=== PATIENT | female | born 1950 | race Caucasian/White ===

== ENCOUNTER 2022-04-20 21:49 | Inpatient (IN) | payer MEDICARE, MEDICAID, SELFPAY ==
[2022-04-20] VITALS (10 sets, daily range): BP systolic 98–102; BP diastolic 60–78; PULSE 86–94; RESP 4–19; TEMP 35.8; O2SAT 88–96
[2022-04-20] MEDS: Norepinephrine in D5W 8 MG/250 ML BAG 7.616 MG IV (23:00)
[2022-04-20] MEDS: Normal Saline 1,000 ML 125 ML IV (23:00)
[2022-04-20] MEDS: Norepinephrine in D5W 8 MG/250 ML BAG IV (23:39)
[2022-04-20] MEDS: LORazepam 2 MG/ML VIAL IVP (23:42)
[2022-04-20] MEDS: Pantoprazole 40 MG VIAL IVP (23:44)
[2022-04-20] MEDS: Albuterol/Ipratropium 3 ML UPD VIAL UPD (23:50)
[2022-04-21] VITALS (128 sets, daily range): BP systolic 85–179; BP diastolic 46–79; PULSE 68–114; RESP 1–35; TEMP 33.8–37.5; O2SAT 81–98
--- NOTE | 2022-04-21 | W.PM.HP.N ---
Date of service: 04/20/22 Time of Service: 23:20 Assessment and Plan Assessment and plan (1) Acute respiratory failure with hypoxia and hypercarbia: Status: Acute Assessment and plan: Acute on chronic respiratory failure with hypercarbia and hypoxemia secondary to COPD exacerbation with symptoms suggestive of acute purulent bronchitis. Continue supportive care with mechanical ventilation, treat bronchospasms with scheduled doses of bronchodilators, IV steroids, IV magnesium and empiric treatment with Levaquin. 10 obtain sputum culture as well as urine for Legionella antigen and strep antigen. Provide GI and DVT prophylaxis. Request pulmonary consultation in the morning. (2) COPD exacerbation: Status: Acute Assessment and plan: As above (3) Acute hypotension: Status: Acute Assessment and plan: Probable hypovolemia from poor oral intake over the last few days exacerbated by vasodilatation from medications given for RSI. Supportive care with norepinephrine. POCUS cardiac exam suggest underfilled RV patient could benefit from volume infusion. will give bolus of LR over next couple hours then re-evaluate her response (4) GERD (gastroesophageal reflux disease): Status: Chronic Assessment and plan: iv protonix (5) DVT prophylaxis: Status: Acute Assessment and plan: lovenox 40 mg sc daily History of Present Illness History of Present Illness Chief Complaint: Dyspnea Narrative: This 71-year-old female with a history of COPD, hypertension, GERD, hiatal hernia, dyslipidemia, former smoker (30+ pack years abstinent x3 years) presented to the emergency department on 04/20/2022 with increased dyspnea and cough and sputum production not associated with a fever or rigors. Patient is not on home oxygen. Patient to become progressively worse over the last few days despite increased use of her bronchodilators. At home she uses Trelegy Ellipta and Ventolin HFA. She was evaluated the emergency department at [facility] and admitted as a COPD exacerbation with hypoxic respiratory failure. Per documentation from [facility] EMS found her to be 78% on room air on their arrival she was given a DuoNeb treatment by EMS and on arrival to [facility] emergency department she was 83% on 15 L nonrebreather mask. However with treatment her SPO2 increased to 93% on 15 L via oxy mask. Work-up in the emergency department clued routine labs showing white count 11,100 hemoglobin 13.7 g. D-dimer 1.08. BUN 11 creatinine 1.0. Influenza RSV and SARS-CoV-2 testing were negative. Chest x-ray showed no acute cardiopulmonary findings except for large hiatal hernia. CT angiogram of the chest revealed a large esophageal hiatal hernia and emphysematous changes but no focal infiltrates. Patient was admitted to the hospital at [facility] but progressively declined with increased tachypnea and tachycardia and hypoxemia requiring intubation and mechanical ventilation. Patient was treated with a dose of Levaquin 750 mg IV given Solu-Medrol 40 mg. I was contacted by the hospitalist and asked to accept the patient in transfer to our intensive care unit. Patient received 70 mg of propofol and 50 mg of fentanyl with intubation procedure which was performed by Dr. Everett. Postprocedure the patient had some hypotension which required fluid boluses and initiation of a norepinephrine drip. Patient was transported to [facility] on a ketamine drip and norepinephrine drip. Review of Systems Unobtainable due to endotracheal tube PFSH All Active Problems (Updated 04/21/22 @ 02:42 by Uche Madera MD) DVT prophylaxis (Acute) Acute hypotension (Acute) Acute respiratory failure with hypoxia and hypercarbia (Acute) Varicose veins of lower extremities with inflammation (Acute) Recurrent major depression (Acute) Psoriasis (Chronic) Obstructive sleep apnea (Chronic) Myoclonus (Acute) Lumbar spondylosis (Acute) Lumbago with sciatica (Acute) Iron deficiency anemia (Acute) Essential hypertension (Acute) Hyperlipidemia (Acute) Hyperglycemia (Acute) GERD (gastroesophageal reflux disease) (Chronic) Eustachian tube disorder (Acute) Dysphagia (Acute) Hiatal hernia (Chronic) Degenerative joint disease involving multiple joints (Acute) Atopic dermatitis (Acute) Arthropathy (Acute) Anemia (Chronic) COPD exacerbation (Acute) Medical History (Updated 04/21/22 @ 02:42 by Uche Madera MD) Benign neoplasm of endocrine gland Cardiac arrhythmia Former tobacco use History of non-ST elevation myocardial infarction (NSTEMI) Inflammatory dermatosis Pleurisy Surgical History (Updated 04/21/22 @ 00:24 by Uche Madera MD) H/O colonoscopy (~12/15/16) H/O hemorrhoidectomy (~01/30/11) H/O nasal septoplasty (~11/28/10) H/O tubal ligation H/O varicose vein ligation History of carpal tunnel release (~04/01/07) History of esophagogastroduodenoscopy (EGD) (~03/24/19) History of repair of rectocele (~03/02/01) S/P tonsillectomy Status post coronary artery stent placement (~03/14/11) Status post open reduction with internal fixation (ORIF) of fracture of ankle Family History (Updated 04/21/22 @ 00:26 by Uche Madera MD) Mother Cancer Uterine cancer Social History (Updated 04/21/22 @ 00:25 by Uche Madera MD) Smoking/Tobacco Use Status: Former Tobacco Use Quit Date: 11/07/18 Pack-years: 30 Tobacco: How many years used: 50 Smoking risk assessment performed?: Yes Alcohol Intake: never Drug use: Never Household members: spouse current occupation: Retired [employer] Allergies and Home Medications Allergies Allergy/AdvReac Type Severity Reaction Status Date / Time Cephalosporins Allergy Intermediate Skin Rash Verified 04/21/22 00:30 erythromycin base Allergy Intermediate Skin Rash Verified 04/21/22 00:30 losartan Allergy Mild Skin Rash Verified 04/21/22 00:30 codeine AdvReac Intermediate Dizziness/L Verified 04/21/22 00:30 ighthead doxepin AdvReac Intermediate Dizziness/L Verified 04/21/22 00:30 ighthead celecoxib AdvReac Mild Nausea Verified 04/21/22 00:30 prednisone AdvReac Mild Dizziness/L Verified 04/21/22 00:30 ighthead Home Medications Medication Instructions Recorded Confirmed Type albuterol sulfate 90 mcg/actuation 2 inh inhalation Q4H PRN PRN 04/21/22 04/21/22 History aerosol inhaler (Ventolin HFA) amlodipine 10 mg tablet 10 mg PO DAILY 04/21/22 04/21/22 History fluticasone fur. 100 mcg-umeclid 1 inh inhalation DAILY 04/21/22 04/21/22 History 62.5 mcg-vilant 25 mcg inhalat.powder (Trelegy Ellipta) omeprazole 40 mg capsule,delayed 40 mg PO DAILY 04/21/22 04/21/22 History release rosuvastatin 20 mg tablet 20 mg PO DAILY 04/21/22 04/21/22 History tiotropium bromide 1.25 2 puff inhalation DAILY 04/21/22 04/21/22 History mcg/actuation mist for inhalation (Spiriva Respimat) Exam Narrative Exam Narrative: Moderate build elderly female who is sedated and intubated with endotracheal tube 7.5, pupils pinpoint but reactive to direct and consensual light no scleral icterus Oropharynx no exudate moist mucous membranes edentulous Neck supple no rigidity no overt JVD normal carotid pulses Lungs diffuse scattered expiratory wheezes Heart is regular but slightly tachycardic no appreciable murmur rub or gallop Abdomen protuberant but soft nondistended no palpable masses no bruits Extremities without peripheral cyanosis or edema Neuro exam patient is sedated not responsive to tactile stimulation there is no decerebrate or decorticate posturing. Muscle tone intact no facial asymmetry Results Labs 04/21/22 05:35 04/21/22 05:35 Last Vital Signs Pulse 92 H 04/20/22 23:50 Resp 18 04/20/22 23:50 Pulse Ox 90 L 04/20/22 23:50 Time Spent Time spent with Patient: 55-74 minutes Time was spent: preparing to see the patient(eg.review tests), obtaining and/or reviewing separately otained hiistory, ordering medications,tests, procedures, referring, communicating with other health resident care assistant (discussion w/ Dr. Everett, hospitalist [facility] indepentently interpreting results, counseling the patient (counseling family (, sons)) and care coordination
--- NOTE | 2022-04-21 00:01 | DI.RAD_ITS ---
Exam(s) XR PORTABLE CHEST AP EXAM: XR PORTABLE CHEST AP CLINICAL HISTORY: hypoxic respiratory failure TECHNIQUE: 2D digital imaging was performed. COMPARISON: No exams were available for comparison FINDINGS: Endotracheal tube with tip at the level of the aortic arch. Nasogastric tube projects in the stomach . Multiple leads overlie the chest. LUNGS: Emphysematous and mild fibrotic changes. No focal area of consolidation. No pleural abnormal ity seen. HEART: Normal size. AORTA: Normal diameter. BONES: Unremarkable for age. Soft tissues: Unremarkable. IMPRESSION: No acute findings. Satisfactory port placement of endotracheal and nasogastric tubes. DATA REPOSITORY: RADIATION DOSE DELIVERED:
[2022-04-21] MEDS: dexmedeTOMidine IN 0.9 % NACL 400 MCG/100 ML BTL IV ×2 (00:22→12:24)
[2022-04-21 00:38] LABS: BE (Venous) -11 mmol/L (-2-3); HCO3 (Venous) 19 mmol/L (23-28); O2 Sat (Venous) 89 %; TCO2 (Venous) 18 mmol/L (24-29); pCO2 (Venous) 59 mmHg (41-51); pO2 (Venous) 71 mmHg
[2022-04-21 00:39] LABS: pH (Venous) 7.11 (7.31-7.41)
--- NOTE | 2022-04-21 01:00 | RT.EKG_ITS ---
APPROVED REPORT Exam: Resting ECG Reason for Exam: acute respiratory failure, hypotension Patient Location: I HR:74 bpm ECG Measurements Heart Rate 74 AXIS TN 123 P 66 QRSd 99 QRS 71 QT 477 T 29 QTc 530 Conclusion Sinus rhythm...normal P axis, V-rate 50- 99 Low voltage with right axis deviation...low voltage, RAD Prolonged QT interval...QTc >500mS
[2022-04-21] MEDS: methylPREDNISolone SUCC 40 MG VIAL IV ×3 (01:02→08:56)
[2022-04-21 01:19] LABS: Lab Add On Test CBN
[2022-04-21 01:26] LABS: Magnesium 2.1 mg/dL (1.8-2.4)
--- NOTE | 2022-04-21 01:30 | DI.VRAD_ITS ---
PROCEDURE INFORMATION: Exam: XR Chest Exam date and time: 04/21/2022 12:29 AM Age: 71 years old Clinical indication: Condition or disease; Other: Hypoxic respiratory failure TECHNIQUE: Imaging protocol: Radiologic exam of the chest. Views: 1 view. COMPARISON: No relevant prior studies available. FINDINGS: Tubes, catheters and devices: Tip of ET tube overlies trachea, approximately 3.5 cm above tania. Enteric tube followed to left upper quadrant. Lungs: Hyperinflation. No consolidation. Pleural spaces: Unremarkable. No pleural effusion. No pneumothorax. Heart/Mediastinum: Unremarkable. No cardiomegaly. Bones/joints: Degenerative changes. IMPRESSION: 1. ET tube appears satisfactorily positioned. 2. Hyperinflation of the lungs. Dictated and Authenticated by: Avery Gomez MD. Ordering:[facility] Santy Ivey MD
[2022-04-21] MEDS: Albuterol 2.5 MG/3 ML INH SOLN VIAL (01:37)
[2022-04-21] MEDS: MAGNESIUM SULFATE 2 GM/50 ML BAG IVPB (01:38)
[2022-04-21] MEDS: Lactated Ringers 1,000 ML 250 ML IV (02:00)
--- NOTE | 2022-04-21 02:24 | W.POCUS ---
Pocus Exam Limited Cardiac Exam DATE OF EXAM: 04/21/22 TIME OF EXAM: 01:25 PROVIDER THAT PERFORMED THE STUDY: Uche Madera IS THIS A REPEAT EXAM DURING THIS ENCOUNTER: no REASON FOR EXAM: Hypotension VISUALIZED STRUCTURES: four chambers, LVOT, aortic valve, mitral valve, Interventricular septum and IVC VIEW OBTAINED: Apical 4-Chamber, Parasternal long-axis, Parasternal short-axis and Subxiphoid PERTINENT FINDINGS/IMPRESSION: No LV dysfunction, No pericardial effusion and No RV dysfunction INCIDENTAL FINDINGS: underfilled RV w/ normal RV systolic function Exam complete
[2022-04-21] MEDS: fentaNYL 100 MCG/2 ML VIAL 50 MCG IVP ×4 (02:36→11:24)
[2022-04-21] MEDS: Lactated Ringers 1,000 ML 999 ML IV (03:33)
[2022-04-21] MEDS: Albuterol/Ipratropium 3 ML UPD VIAL UPD ×5 (03:39→19:58)
[2022-04-21] MEDS: Lactated Ringers 1,000 ML 150 ML IV (04:41)
[2022-04-21] MEDS: Normal Saline Flush 10 ML SYR IVP ×5 (05:27→21:56)
[2022-04-21 06:40] LABS: BE (Venous) -7 mmol/L (-2-3); HCO3 (Venous) 20 mmol/L (23-28); O2 Sat (Venous) 98 %; TCO2 (Venous) 19 mmol/L (24-29); pCO2 (Venous) 45 mmHg (41-51); pH (Venous) 7.26 (7.31-7.41); pO2 (Venous) 105 mmHg
[2022-04-21 06:49] LABS: Abs Immature Grans 0.04 10^3/uL (0.0-0.06); Absolute Lymphocyte Count 0.27 10^3/uL (1.2-3.4); Absolute Monocyte Count 0.33 10^3/uL (0.1-0.8); Basophils % 0.1; HCT 35.1 % (36.0-46.0); HGB 10.9 g/dL (11.2-15.7); Immature Grans % 0.3; Lactate 3.1 mmol/L (0.6-1.4); Lymphocytes % 1.9; MCH 26.7 pg (27.0-33.0); MCHC 31.1 % (32.0-36.0); MCV 86 fL (80-95); MPV 9.4 fL (8.0-11.0); Monocytes % 2.3; Neutrophils % 95.4; Platelet Count 250 10^3/uL (130-400); RBC 4.09 10^6/uL (3.93-5.22); RDW 16.4 % (11.7-14.6); RDW-SD 50.9 fL; WBC 14.21 10^3/uL (4.4-10.8)
[2022-04-21 06:59] LABS: Prothrombin Time 10.2 sec (9.3-11.0)
[2022-04-21 07:05] LABS: Absolute Basophil Count 0.01 10^3/uL (0.0-0.2); Absolute Neutrophil Count 13.56 10^3/uL (1.2-6.7)
--- NOTE | 2022-04-21 07:15 | PUCC_ITS ---
General Date of Service Date of service: 04/21/22 Time of Service: 07:15 Reason for Admission to ICU: Acute hypoxic and hypercapnic respiratory failure Assessment and Plan Assessment and plan (1) Acute hypotension: Status: Acute (2) Acute respiratory failure with hypoxia and hypercarbia: Status: Acute (3) GERD (gastroesophageal reflux disease): Status: Chronic (4) COPD exacerbation: Status: Acute (5) Hypokalemia: Status: Acute (6) Sacral decubitus ulcer: Status: Acute (7) ARMIN (acute kidney injury): Status: Acute (8) Leukocytosis: Status: Acute Assessment and plan: This is a 71 yo admitted to the ICU after being intubated at OSH for acute hypoxic and hypercapnic respiratory failure. SBT this morning was failed after approximately 1 hour due to increased respiratory rate, hypoxia and tachycardia. She is getting Duonebs and maintenance inhalers. She was started on Levaquin, however in the absence of a pneumonia on imaging, doxycycline should be sufficient. I will add a repeat lactate, VBG and add a procalcitonin to be completed today. I do not think she needs further IVF resuscitation. She was requiring vasopressors, likely due to sedation, and was able to liberate her from these this morning as well. They may be needed prn since she will be resedated as she is not ready for extubation today. There is no utility is giving very large doses of methylprednisilone in pure COPD, so I have changed this to 40mg daily as opposed to q8h. Since she is remaining intubated, I will start her on tube feeds today. Recommendations Pulmonary: Acute hypoxic and hypercapnic respiratory failure - continue Symbicort 80 and Spiriva (patient on Trelegy as an outpatient) - Duonebs q4h while intubated - continue mechanical ventilation - PEEP 5, TV 6-8cc/kg, RR 14 - recommend another SBT this afternoon, however will not extubate at this time - will re-evaluate tomorrow morning - repeat VBG and lactate - recommend extubating to HFNC once patient is ready COPD Exacerbation - continue inhaler and nebs as above - change IV methylpred from 40mg q8h to 40mg daily - change Levaquin to doxycycline - I will see patient as an outpatient after discharge Cardiac: Hypotension - likely due to sedation - Levophed prn while on sedation - no further IVF's needed Renal: ARMIN - continue to monitor - strict I/O's I&O: Intake & Output 04/18/22 04/19/22 04/20/22 04/21/22 23:59 23:59 23:59 23:59 Intake Total 2327.534 / 2327.534 Output Total 150 / 150 435 / 435 Balance -150 / -150 1892.534 / 1892.534 Weight 66.7 kg 66 kg Daily Fluid Goal:: even GI Nutrition: Nutrition - start tube feeds at 5cc/hr with gradual increses to goal of 45cc/hr to start - nutrition consult Date of Last Bowel Movement: 04/20/22 Infectious Disease: Concern for pulmonary infection - procalcitonin - Levaquin changed to doxycycline (no pneumonia seen on imaging) - urine antigens for strep and legionella pending - sputum culture ordered Sacral wound, present on admission - Mepelex, consider wound consult Hematologic: Leukocytosis - likely reactive Neurologic: No acute concerns Endocrine: Hyperglycemia - low SSI added with q6h fingersticks Lines: PIV Cohen Prophylaxis: Lovenox Protonix Code Status: Resuscitation Status DNR Subjective Critical and life-threatening events over the past 24 hours: This is a 71 yo with COPD, HTN, GERD who presented to [facility] with increased dyspnea, cough and sputum. She became progressively worse over the preceding days despite use of her bronchodilators. When she presented to [facility] Ed her O2 was 78% and she was in respiratory distress. She had supplemental O2 administered, but despite a NRB at 15L she was still hypoxic and labored. She was placed on high flow oxygen and [facility] hospitalist was called for admission. Her flu, RSV and COVID were all negative. She had a CXR and an CTA. The CTA shows no consolidation, no PE and only with a large hiatal hernia and mild emphysema (I do not have access to view this CTA myself). Her ABG last night: . She was admitted to [facility] but decompensated to the point where she was intubated (I cannot see that any BiPAP or other NIV was attempted with her). She was requiring low dose vasopressor support, likely due to sedation and was placed on antibiotic therapy with Levaquin (cephalosporin allergy). She remains intubated this morning. I turned off her sedation, IVF's and Levophed and placed her on a spontaneous breathing trial. She did well for approximately 1 hour, but then began to have respiratory distress and was working much more to breath. I had her placed back onto volume control. Exam Narrative Exam Narrative: POCUS 04/21/21: Good views at all cardiac POCUS sites. Good LV and RV function. Septum does seem to be enlarged, although no clear JOSH, if she were underfilled this could be possible. IVC is plump(2.42cm) with no collapse (patient is mechanically ventilated). Gen: intubated and sedated HENT: pupils minimally reactive Chest: No respiratory distress, normal appearance of chest, clear to auscultation bilaterally, no crackles or wheezes, normal inspiratory effort Heart: regular rate and rhythym, no murmurs, rubs or gallops Abdomen: Non-distended, soft, non tender Extremities: No clubbing, edema, cyanosis, rashes Neuro: off sedation patient follows commands appropriately Psych: cooperative Most Recent VS/Results Last Vital Signs Temp 33.8 C L 04/21/22 04:00 Pulse 71 04/21/22 06:01 Resp 15 04/21/22 06:01 BP 98/53 L 04/21/22 06:01 Pulse Ox 92 04/21/22 06:01 Laboratory Results - last 24 hr 04/21/22 04/21/22 04/21/22 00:31 00:31 01:18 WBC RBC Hgb Hct MCV MCH MCHC RDW Plt Count MPV Immature Gran % Neutrophils % Lymphocytes % Monocytes % Eosinophils % Basophils % Nucleated RBC % Absolute Neutrophils Absolute Lymphocytes Absolute Monocytes Absolute Eosinophils Absolute Basophils VBG pH 7.11 L* VBG pCO2 59 H VBG pO2 71 VBG HCO3 19 L VBG Total CO2 18 L VBG O2 Saturation 89 VBG Base Excess -11 L VBG Lactate Magnesium 2.1 Add-On Test Request CBN 04/21/22 04/21/22 04/21/22 06:32 06:32 06:32 WBC 14.21 H RBC 4.09 Hgb 10.9 L Hct 35.1 L MCV 86 MCH 26.7 L MCHC 31.1 L RDW 16.4 H Plt Count 250 MPV 9.4 Immature Gran % 0.3 Neutrophils % 95.4 Lymphocytes % 1.9 Monocytes % 2.3 Eosinophils % 0.0 Basophils % 0.1 Nucleated RBC % 0.0 Absolute Neutrophils 13.56 H Absolute Lymphocytes 0.27 L Absolute Monocytes 0.33 Absolute Eosinophils 0.00 Absolute Basophils 0.01 VBG pH 7.26 L VBG pCO2 45 VBG pO2 105 VBG HCO3 20 L VBG Total CO2 19 L VBG O2 Saturation 98 VBG Base Excess -7 L VBG Lactate 3.1 H* Magnesium Add-On Test Request Review of Systems Unobtainable due to endotracheal tube Time spent with patient Time spent in Critical Care: 60 Time spent in Critical care included: Coordination of care, Chart review, Documenting critically ill care, Time at immediate bedside and Discussing critically ill care with other medical staff Multi-Disciplinary Checklist Lines/Tubes CENTRAL LINE: no ARTERIAL LINE: no COHEN: yes, Cohen Day#: 1 ENDOTRACHEAL TUBE: yes, Endotracheal Tube Day#: 1 Sedation: yes, Sedation Vacation: yes Head of Bed@30 degrees: yes Spontaneous Breathing Trial: yes ICU Maintenance GLUCOSE 140-180mg/dL: no, Reason/Intervention: added SSI PRESSURE ULCER: yes, Lumbar/Sacral RESTRAINTS: yes, Reviewed Necessity: Yes ANTIBIOTICS(if yes, consider Stewardship): Yes Social Issues FAMILY UPDATED: no, Reason/Intervention: defer to hospitalist team PT/OT: no, Reason/Intervention: not appropriate at this time GOALS/DISPOSITION/SUPERVISOR SPECIAL EFFECTS: yes CODE STATUS: DNR,Intubation OK Prophylaxis DVT PROPHYLAXIS: yes GI PROPHYLAXIS: yes, Indication: Mechanical ventilation
[2022-04-21 07:35] LABS: ALT 20 U/L (14-59); AST 24 U/L (15-37); Albumin 3.1 g/dL (3.4-5.0); Alkaline Phosphatase 69 U/L (46-116); BUN 19 mg/dL (7-18); Bilirubin, Total 0.6 mg/dL (0.2-1.0); CREATININE 1.3 mg/dL (0.55-1.02); Calcium 8.7 mg/dL (8.5-10.1); Chloride 106 mmol/L (98-107); Estimated GFR 43.96 (mL/min/1.73m2); Glucose 228 mg/dL (74-106); Potassium 3.1 mmol/L (3.5-5.1); Sodium 140 mmol/L (136-145); TSH 1.21 uIU/mL (0.36-3.74); Total Protein 6.1 g/dL (6.4-8.2)
[2022-04-21] MEDS: Budesonide/Formoterol 80/4.5 6.9 GM 60 PUFF INH IH ×2 (08:22→20:41)
--- NOTE | 2022-04-21 08:33 | PDOC.CMIN ---
- If Service Date Differs Date of service: 04/21/22 Time of Service: 08:33 Care Management Initial Assess REASON FOR HOSPITALIZATION:: Acute hypoxemic respiratory failure PAST MEDICAL HISTORY/PAST SURGICAL HISTORY:: Medical History (Updated 04/21/22 @ 02:42 by Uche Madera MD). Benign neoplasm of endocrine gland. Cardiac arrhythmia. Former tobacco use. History of non-ST elevation myocardial infarction (NSTEMI). Inflammatory dermatosis. Pleurisy. Surgical History (Updated 04/21/22 @ 00:24 by Uche Madera MD). H/O colonoscopy (~12/15/16). H/O hemorrhoidectomy (~01/30/11). H/O nasal septoplasty (~11/28/10). H/O tubal ligation. H/O varicose vein ligation. History of carpal tunnel release (~04/01/07). History of esophagogastroduodenoscopy (EGD) (~03/24/19). History of repair of rectocele (~03/02/01). S/P tonsillectomy. Status post coronary artery stent placement (~03/14/11). Status post open reduction with internal fixation (ORIF) of fracture of ankle PREVIOUS FUNCTIONAL STATUS/SOCIAL/FAMILY SUPPORTS:: Fifi resides in [place] with her , Davis. Sons Juan Manuel MONDRAGON, and Alysia have been present consistently since admission. CURRENT FUNCTIONAL STATUS:: Attempt to extubate this morning was unsuccessful. Family present and supportive. Has patient been provided with info about the portal/API?: No Did the patient sign up for the portal?: No CODE STATUS:: DNR INSURANCE COVERAGE / FINANCIAL ISSUES:: Medicare. Medicaid POTENTIAL DISCHARGE NEEDS:: Evaluations for further needs. PATIENT/FAMILY EDUCATION NEEDS:: Review discharge instructions, discuss Ask Me Three. ANTICIPATED BARRIERS TO DISCHARGE:: bronchodilators, at home she uses Trelegy Ellipta and Ventolin HFA TRANSPORTATION:: Via private vehicle with family. PLAN:: Fifi continues to be closely monitored, she will be evaluated for further needs prior to discharge. Per Hospitalist, [facility] has agreed to accept patient back when medically stable and out of ICU status. continues to follow.
[2022-04-21] MEDS: Enoxaparin 40 MG/0.4 ML SYR SC (08:58)
[2022-04-21 10:21] LABS: BE (Venous) -5 mmol/L (-2-3); HCO3 (Venous) 23 mmol/L (23-28); O2 Sat (Venous) 89 %; TCO2 (Venous) 22 mmol/L (24-29); pCO2 (Venous) 53 mmHg (41-51); pH (Venous) 7.24 (7.31-7.41); pO2 (Venous) 59 mmHg
[2022-04-21 10:48] LABS: Lactate 1.4 mmol/L (0.6-1.4)
[2022-04-21] MEDS: DOXYCYCLINE 100 MG in Normal Saline 100 ML IVPB ×2 (10:59→21:55)
--- NOTE | 2022-04-21 11:42 | W.NUTCONSULT ---
Date of service: 04/21/22 Time of Service: 11:42 Nutritional Consult ASSESSMENT: Fifi was intubated secondary to respiratory failure with sacral pressure wound (awaiting stage/size) hx of COPD, HTN. No height in chart- appears well nourished, about 5 ft. BMI in overweight catagory. Spoke to daughter in law, reports no recent weight loss or change in eating habits. Estimated Needs: 1690 kcal, 65-90 g protein (1.4 g/kg), 1950 ml fluid INTERVENTION: Recommend Jevity 1.5: 45 cc/hour providing a total of 1620 kcal, 67.5 g protein, 810 ml fluid. Flush free water 300 ml q 6 hours 2 ounces Liquid Protein via feeding tube- providing additional 120 kcal, 30 g protein MONITORING AND EVALUATION: residuals, labs, weight Time Spent in Nutritional Counseling and Treatment: 10
[2022-04-21 11:45] LABS: Procalcitonin 0.4 ng/mL
--- NOTE | 2022-04-21 15:00 | PHA.REVIEW2 ---
Pharmacy Admission Review - Admission Clinical Review (Last Updated 04/21/22 @ 00:20 by Uche Madera MD) Sacral decubitus ulcer (Acute) Leukocytosis (Acute) ARMIN (acute kidney injury) (Acute) Hypokalemia (Acute) DVT prophylaxis (Acute) Acute hypotension (Acute) Acute respiratory failure with hypoxia and hypercarbia (Acute) COPD exacerbation (Acute) Cephalosporins Allergy (Intermediate, Verified 04/21/22 00:30) Skin Rash erythromycin base Allergy (Intermediate, Verified 04/21/22 00:30) Skin Rash losartan Allergy (Mild, Verified 04/21/22 00:30) Skin Rash codeine Adverse Reaction (Intermediate, Verified 04/21/22 00:30) Dizziness/Lighthead doxepin Adverse Reaction (Intermediate, Verified 04/21/22 00:30) Dizziness/Lighthead celecoxib Adverse Reaction (Mild, Verified 04/21/22 00:30) Nausea prednisone Adverse Reaction (Mild, Verified 04/21/22 00:30) Dizziness/Lighthead Resuscitation Status DNR Height 4 ft 11 in Weight 66 kg - Renal Dosing Renal Dosing: BUN 19 mg/dL (7-18) H 04/21/22 06:32 Creatinine 1.3 mg/dL (0.55-1.02) H 04/21/22 06:32 Medications needing adjustments: Reviewed (Crcl ~40.8 mL/min current meds okay) - Anticoagulation Anticoagulation: Hgb 10.9 g/dL (11.2-15.7) L 04/21/22 06:32 Hct 35.1 % (36.0-46.0) L 04/21/22 06:32 Plt Count 250 10^3/uL (130-400) 04/21/22 06:32 INR 1.0 (0.9-1.1) 04/21/22 06:32 Creatinine 1.3 mg/dL (0.55-1.02) H 04/21/22 06:32 DVT Prophylaxis: Reviewed Medications: Enoxaparin Therapeutic Anticoagulation: N/A - Opiate Usage Evaluate Pain Scale/Pains Meds: Reviewed Scheduled Bowel Reg ordered if on Opiates?: No (pt is NPO) - Relevant Labs Sodium 140 mmol/L (136-145) 04/21/22 06:32 Potassium 3.1 mmol/L (3.5-5.1) L 04/21/22 06:32 Chloride 106 mmol/L (98-107) 04/21/22 06:32 Magnesium 2.1 mg/dL (1.8-2.4) 04/21/22 00:31 Electrolytes, C-Reactive P, ESR: Intervened (K+ low, made sure provider was aware as no replacement had been ordered) - DM Control DM Control: Glucose 228 mg/dL (74-106) H 04/21/22 06:32 Finger Stick Blood Glucose 130 Finger Stick Blood Glucose 130 Finger Stick Blood Glucose 130 DM Control: Intervened Insulin Dosing, Diabetic Medication: sliding scale aspart ordered - Cardiac Review BP, HR, EF%: Reviewed (BP has been up and down some, but on the lower side most of admission) - Qtc Review QTc: Reviewed (QTc 530 on EKG done this morning, current meds okay) - IV to PO Switch IV Medications: Reviewed (pt is vented and NPO/getting tube feeds) - Home Meds Home Med List reviewed: Reviewed (therapeutic duplicate (inhaled anticholinergics)-has both trelegy ellipta (contains umeclidinium) and spiriva (tiotropium) on her home med list) Relevent Home Meds Not ordered & why?: amlodipine (NPO, hypotension), trelegy ellipta (has symbicort and spiriva subbed for this), omeprazole (NPO, has pantoprazole ordered), rosuvastatin (NPO) - Current meds Current Medication Order Review: Intervened (Talked to provider about duplicates (scheduled duonebs and combivent; trelegy ellipta and symbicort/spiriva), combivent and trelegy discontinued.) - Comments Comments/Follow Ups: Watch BP, SCr, K+, labs and for med changes (possible renal dose adjustments, IV to PO, possible BM meds) Antibiotic Review - Pharmacy Antibiotic Review Pharmacy Antibiotic Activity: Abx regimen adjustment (levofloxacin was cancelled and doxycyline was ordered) Relevant Labs: Relevant Labs 04/21/22 10:15 Procalcitonin 0.4
[2022-04-21] MEDS: POTASSIUM CHLORIDE 20 MEQ/100 ML BAG 50 MEQ IVPB ×2 (15:37→17:28)
[2022-04-21] MEDS: Furosemide 40 MG/4 ML VIAL IVP (15:37)
[2022-04-21 17:07] LABS: BE (Venous) -2 mmol/L (-2-3); HCO3 (Venous) 24 mmol/L (23-28); O2 Sat (Venous) 98 %; TCO2 (Venous) 22 mmol/L (24-29); pCO2 (Venous) 40 mmHg (41-51); pH (Venous) 7.38 (7.31-7.41); pO2 (Venous) 97 mmHg
[2022-04-21] MEDS: PROPOFOL 500 MG/50 ML BTL IV (17:57)
[2022-04-21 18:11] LABS: Legionella Ag Detection Urine Negative (Negative)
[2022-04-21] MEDS: dexmedeTOMidine IN 0.9 % NACL 400 MCG/100 ML BTL 11.7 MCG IV (19:30)
[2022-04-21] MEDS: Pantoprazole 40 MG VIAL IVP (21:45)
[2022-04-21] MEDS: Normal Saline 500 ML 30 ML IV (21:56)
[2022-04-21] MEDS: PROPOFOL 1,000 MG/100 ML BTL 12.1 MG IV (23:27)
[2022-04-22] VITALS (115 sets, daily range): BP systolic 104–176; BP diastolic 53–94; PULSE 84–132; RESP 4–29; TEMP 36–37.2; O2SAT 87–98
[2022-04-22] MEDS: Albuterol/Ipratropium 3 ML UPD VIAL UPD ×4 (00:54→11:52)
[2022-04-22] MEDS: dexmedeTOMidine IN 0.9 % NACL 400 MCG/100 ML BTL 11.7 MCG IV (03:16)
[2022-04-22 06:08] LABS: Abs Immature Grans 0.12 10^3/uL (0.0-0.06); Absolute Basophil Count 0.02 10^3/uL (0.0-0.2); Absolute Lymphocyte Count 0.47 10^3/uL (1.2-3.4); Absolute Monocyte Count 1.59 10^3/uL (0.1-0.8); Absolute Neutrophil Count 18.39 10^3/uL (1.2-6.7); Basophils % 0.1; HCT 34.2 % (36.0-46.0); HGB 10.8 g/dL (11.2-15.7); Immature Grans % 0.6; Lymphocytes % 2.3; MCH 26.9 pg (27.0-33.0); MCHC 31.6 % (32.0-36.0); MCV 85 fL (80-95); MPV 9.9 fL (8.0-11.0); Monocytes % 7.7; Neutrophils % 89.3; Platelet Count 254 10^3/uL (130-400); RBC 4.02 10^6/uL (3.93-5.22); RDW 16.5 % (11.7-14.6); RDW-SD 51.6 fL; WBC 20.59 10^3/uL (4.4-10.8)
[2022-04-22 06:24] LABS: ALT 26 U/L (14-59); AST 33 U/L (15-37); Albumin 3.1 g/dL (3.4-5.0); Alkaline Phosphatase 68 U/L (46-116); Anion Gap 8.5 mmol/L (3-11); BUN 28 mg/dL (7-18); Bilirubin, Total 0.4 mg/dL (0.2-1.0); CO2 24.5 mmol/L (21.0-32.0); CREATININE 1.3 mg/dL (0.55-1.02); Calcium 9.1 mg/dL (8.5-10.1); Chloride 107 mmol/L (98-107); Estimated GFR 43.96 (mL/min/1.73m2); Glucose 125 mg/dL (74-106); Potassium 4.2 mmol/L (3.5-5.1); Sodium 140 mmol/L (136-145); Total Protein 6.4 g/dL (6.4-8.2)
[2022-04-22 06:35] LABS: Diff Comment Agrees w/ Instrument; RBC Morphology Normal
--- NOTE | 2022-04-22 06:48 | PUCC_ITS ---
General Date of Service Date of service: 04/22/22 Time of Service: 06:48 Reason for Admission to ICU: Acute hypoxic and hypercapnic respiratory failure Assessment and Plan Assessment and plan (1) Acute hypotension: Status: Acute (2) Acute respiratory failure with hypoxia and hypercarbia: Status: Acute (3) GERD (gastroesophageal reflux disease): Status: Chronic (4) COPD exacerbation: Status: Acute (5) Hypokalemia: Status: Acute (6) Sacral decubitus ulcer: Status: Acute (7) ARMIN (acute kidney injury): Status: Acute (8) Leukocytosis: Status: Acute Assessment and plan: This is a 71 yo admitted to the ICU after being intubated at OSH for acute hypoxic and hypercapnic respiratory failure due to a COPD exacerbation. She is currently doing well on SBT. We will continue her on this and if she is still doing well at 9:15 we will plan to extubate her to BiPAP 10/5. She is on some Precedex for anxiety and she can be extubated while on the Precedex. He had a dip in UOP yesterday that was rectified with Lasix. Recommendations Pulmonary: Acute hypoxic and hypercapnic respiratory failure - continue Symbicort 80 and Spiriva (patient on Trelegy as an outpatient) - Duonebs q4h while intubated - continue mechanical ventilation - PEEP 5, TV 6-8cc/kg, RR 14 - if passes SBT around 9:15 can be extubated to BiPAP 10/5 COPD Exacerbation - continue inhaler and nebs as above - change IV methylpred 40mg daily - doxycycline - I will see patient as an outpatient after discharge Cardiac: Hypotension, resolved - likely due to sedation - Levophed prn while on sedation - no further IVF's needed Renal: ARMIN - continue to monitor - strict I/O's I&O: Intake & Output 04/19/22 04/20/22 04/21/22 04/22/22 23:59 23:59 23:59 23:59 Intake Total 4492.291 / 4492.291 300.028 / 300.028 Output Total 150 / 150 1660 / 1660 Balance -150 / -150 2832.291 / 2832.291 300.028 / 300.028 Weight 66.7 kg 66 kg 68.3 kg Daily Fluid Goal:: even GI Nutrition: Nutrition - tube feeds while intubated - nutrition consult Date of Last Bowel Movement: 04/19/22 Infectious Disease: Concern for pulmonary infection - procalcitonin negative - Levaquin changed to doxycycline (no pneumonia seen on imaging) - urine antigens for strep and legionella pending - sputum culture ordered Sacral wound, present on admission - Mepelex, consider wound consult Hematologic: Leukocytosis - likely reactive Neurologic: No acute concerns Endocrine: Hyperglycemia - low SSI added with q6h fingersticks Lines: PIV Cohen Prophylaxis: Lovenox Protonix Code Status: Resuscitation Status DNR Subjective Critical and life-threatening events over the past 24 hours: She did require propofol to be started yesterday due to agitation. She did well overnight. No further vasopressor requirements. She is able to follow commands and wants the tube out. Exam Narrative Exam Narrative: POCUS 04/21/21: Good views at all cardiac POCUS sites. Good LV and RV function. Septum does seem to be enlarged, although no clear JOSH, if she were underfilled this could be possible. IVC is plump(2.42cm) with no collapse (patient is mechanically ventilated). Gen: intubated and sedated HENT: pupils minimally reactive Chest: No respiratory distress, normal appearance of chest, clear to auscultation bilaterally, bilateral expiratory wheezes Heart: regular rate and rhythym, no murmurs, rubs or gallops Abdomen: Non-distended, soft, non tender Extremities: No clubbing, edema, cyanosis, rashes Neuro: off sedation patient follows commands appropriately Psych: cooperative Most Recent VS/Results Last Vital Signs Temp 36.0 C L 04/22/22 05:41 Pulse 101 H 04/22/22 05:41 Resp 16 04/22/22 05:58 BP 104/53 L 04/22/22 05:41 Pulse Ox 92 04/22/22 05:58 Laboratory Results - last 24 hr 04/21/22 04/21/22 04/21/22 06:32 06:32 06:32 WBC 14.21 H RBC 4.09 Hgb 10.9 L Hct 35.1 L MCV 86 MCH 26.7 L MCHC 31.1 L RDW 16.4 H Plt Count 250 MPV 9.4 Immature Gran % 0.3 Neutrophils % 95.4 Lymphocytes % 1.9 Monocytes % 2.3 Eosinophils % 0.0 Basophils % 0.1 Nucleated RBC % 0.0 Absolute Neutrophils 13.56 H Absolute Lymphocytes 0.27 L Absolute Monocytes 0.33 Absolute Eosinophils 0.00 Absolute Basophils 0.01 RBC Morphology PT 10.2 INR 1.0 VBG pH VBG pCO2 VBG pO2 VBG HCO3 VBG Total CO2 VBG O2 Saturation VBG Base Excess VBG Lactate Sodium 140 Potassium 3.1 L Chloride 106 Carbon Dioxide 22.0 Anion Gap 12.0 H BUN 19 H Creatinine 1.3 H Est GFR (CKD-EPI 2020) 43.96 Glucose 228 H Calcium 8.7 Total Bilirubin 0.6 AST 24 ALT 20 Alkaline Phosphatase 69 Total Protein 6.1 L Albumin 3.1 L Procalcitonin TSH 1.21 04/21/22 04/21/22 04/21/22 06:32 10:15 10:15 WBC RBC Hgb Hct MCV MCH MCHC RDW Plt Count MPV Immature Gran % Neutrophils % Lymphocytes % Monocytes % Eosinophils % Basophils % Nucleated RBC % Absolute Neutrophils Absolute Lymphocytes Absolute Monocytes Absolute Eosinophils Absolute Basophils RBC Morphology PT INR VBG pH 7.24 L VBG pCO2 53 H VBG pO2 59 VBG HCO3 23 VBG Total CO2 22 L VBG O2 Saturation 89 VBG Base Excess -5 L VBG Lactate 3.1 H* 1.4 Sodium Potassium Chloride Carbon Dioxide Anion Gap BUN Creatinine Est GFR (CKD-EPI 2020) Glucose Calcium Total Bilirubin AST ALT Alkaline Phosphatase Total Protein Albumin Procalcitonin TSH 04/21/22 04/21/22 04/22/22 10:15 17:00 05:15 WBC RBC Hgb Hct MCV MCH MCHC RDW Plt Count MPV Immature Gran % Neutrophils % Lymphocytes % Monocytes % Eosinophils % Basophils % Nucleated RBC % Absolute Neutrophils Absolute Lymphocytes Absolute Monocytes Absolute Eosinophils Absolute Basophils RBC Morphology PT INR VBG pH 7.38 VBG pCO2 40 L VBG pO2 97 VBG HCO3 24 VBG Total CO2 22 L VBG O2 Saturation 98 VBG Base Excess -2 VBG Lactate Sodium 140 Potassium 4.2 D Chloride 107 Carbon Dioxide 24.5 Anion Gap 8.5 BUN 28 H Creatinine 1.3 H Est GFR (CKD-EPI 2020) 43.96 Glucose 125 H Calcium 9.1 Total Bilirubin 0.4 AST 33 ALT 26 Alkaline Phosphatase 68 Total Protein 6.4 Albumin 3.1 L Procalcitonin 0.4 TSH 02/21/23 05:15 WBC 20.59 H RBC 4.02 Hgb 10.8 L Hct 34.2 L MCV 85 MCH 26.9 L MCHC 31.6 L RDW 16.5 H Plt Count 254 MPV 9.9 Immature Gran % 0.6 Neutrophils % 89.3 Lymphocytes % 2.3 Monocytes % 7.7 Eosinophils % 0.0 Basophils % 0.1 Nucleated RBC % 0.0 Absolute Neutrophils 18.39 H Absolute Lymphocytes 0.47 L Absolute Monocytes 1.59 H Absolute Eosinophils 0.00 Absolute Basophils 0.02 RBC Morphology Normal PT INR VBG pH VBG pCO2 VBG pO2 VBG HCO3 VBG Total CO2 VBG O2 Saturation VBG Base Excess VBG Lactate Sodium Potassium Chloride Carbon Dioxide Anion Gap BUN Creatinine Est GFR (CKD-EPI 2020) Glucose Calcium Total Bilirubin AST ALT Alkaline Phosphatase Total Protein Albumin Procalcitonin TSH Review of Systems Unobtainable due to endotracheal tube Time spent with patient Time spent in Critical Care: 45 Time spent in Critical care included: Chart review, Documenting critically ill care, Time at immediate bedside and Discussing critically ill care with other medical staff Multi-Disciplinary Checklist Lines/Tubes CENTRAL LINE: no ARTERIAL LINE: no COHEN: yes, Cohen Day#: 2 ENDOTRACHEAL TUBE: yes, Endotracheal Tube Day#: 2 Sedation: yes, Sedation Vacation: yes Head of Bed@30 degrees: yes Spontaneous Breathing Trial: yes ICU Maintenance GLUCOSE 140-180mg/dL: yes NUTRITION AT GOAL: yes PRESSURE ULCER: yes, RESTRAINTS: yes, Reviewed Necessity: Yes ANTIBIOTICS(if yes, consider Stewardship): Yes Social Issues FAMILY UPDATED: yes PT/OT: no, Reason/Intervention: not appropriate at this time GOALS/DISPOSITION/ACUTE DIALYSIS NURSE: yes CODE STATUS: DNR,Intubation OK Prophylaxis DVT PROPHYLAXIS: yes GI PROPHYLAXIS: yes, Indication: Mechanical ventilation
[2022-04-22] MEDS: Budesonide/Formoterol 80/4.5 6.9 GM 60 PUFF INH IH ×2 (07:47→19:57)
[2022-04-22] MEDS: PROPOFOL 1,000 MG/100 ML BTL 14.102 MG IV (07:55)
[2022-04-22] MEDS: Enoxaparin 40 MG/0.4 ML SYR SC (09:14)
[2022-04-22] MEDS: methylPREDNISolone SUCC 40 MG VIAL IV (09:14)
--- NOTE | 2022-04-22 09:32 | W.NUTRFU ---
Date of service: 04/22/22 Time of Service: 09:32 Nutrition Note NOTE: Current tube feeding order: Jevity 1.2 with goal rate of 45 cc/hour. Free water flushes 100 ml q 4. Provides total of 1296 kcal, 59 g protein, 1410 ml fluid. May be able to extubate today. Will continue to follow Time Spent in Nutritional Counseling and Treatment: 10
[2022-04-22] MEDS: DOXYCYCLINE 100 MG in Normal Saline 100 ML IVPB ×2 (10:00→23:12)
[2022-04-22] MEDS: Levalbuterol 0.63 MG/3 ML UPD VIAL UPD ×2 (10:19→14:14)
--- NOTE | 2022-04-22 11:04 | PDOC.CMPRO ---
- If Service Date Differs Date of service: 04/22/22 Time of Service: 11:04 Care Management Progress Note S/O: Fifi remains in the ICU, CM continues to follow. A: 71 year old female admitted to [facility] 04/20/22 for acute hypoxemic respiratory failure P: Fifi continues to be closely monitored, she will be evaluated for further needs prior to discharge. Per Hospitalist, [facility] has agreed to accept patient back when medically stable and out of ICU status. CM continues to follow.
[2022-04-22] MEDS: MORPHine 2 MG/ML SYR IVP ×3 (11:26→20:30)
[2022-04-22] MEDS: Furosemide 40 MG/4 ML VIAL IVP (13:09)
[2022-04-22] MEDS: Normal Saline Flush 10 ML SYR IVP (13:10)
--- NOTE | 2022-04-22 14:24 | PDOC.STREC ---
Date of service: 04/22/22 Time of Service: 14:24 Speech Therapy Recommendations Report ST Recommendations: Consult received, chart reviewed. Spoke with RN Berta in ICU, patient was extubated this morning but remains on bipap and unable to participate in Clinical Swallow Evaluation at this time. is in agreement. Recommendation was provided to MEDICAL PHYSICIST to hold on evaluation for now and will check in tomorrow morning to see if patient is appropriate. If patient is able to tolerate brief trials off BiPap before then, OK to trial ice chips or very small sips water x 3-4 every 2-3 hours, only if thorough oral care is provided in advance. Discontinue trials and await WINDING OPERATOR evaluation if coughing, wet voice, or respiratory status worsens. Maintain NPO aside from above recommendations until WINDING OPERATOR evaluation can be completed. WINDING OPERATOR to consult with ICU team Thursday for status update. Coding
--- NOTE | 2022-04-22 14:30 | PGE_ITS ---
Date of Service Date of service: 04/22/22 Time of Service: 14:30 Assessment and Plan Assessment and plan (1) Acute respiratory failure with hypoxia and hypercarbia: Status: Acute Assessment and plan: Acute on chronic respiratory failure with hypercarbia and hypoxemia secondary to COPD exacerbation with symptoms suggestive of acute purulent bronchitis. Pulmonary/critical care following. Extubated this AM. NOw on BiPAP. PRN morphine 2mg IV for air hunger; working well. Wean as able off BiPAP. (2) COPD exacerbation: Status: Acute Assessment and plan: Significant COPD with exacerbation. Symbicort, Spiriva, levalbuterol/ipatropium, prn levalbuterol. Methylprednisolone 40mg IV daily. Doxycycline. (3) Acute hypotension: Status: Acute Assessment and plan: Resolved; occurred while sedated. Monitor. (4) GERD (gastroesophageal reflux disease): Status: Chronic Assessment and plan: iv protonix (5) DVT prophylaxis: Status: Acute Assessment and plan: lovenox 40 mg sc daily Subjective Subjective Patient reports: afebrile; denies diarrhea or vomiting Interval history since last seen: Now extubated on HFNC. No pain complaints. Exam Narrative Exam Narrative: Elderly female on BiPAP. Answers questions appropriately Neck supple no rigidity no overt JVD Lungs coasrse, diffuse scattered expiratory wheezes Heart is regular, achycardic no appreciable murmur rub or gallop Abdomen protuberant but soft nondistended. Nontender. Extremities without peripheral cyanosis or edema Neuro: Beverly. Objective Last Vital Signs Temp 37.0 C 04/22/22 13:44 Pulse 119 H 04/22/22 14:15 Resp 21 04/22/22 14:15 BP 132/75 04/22/22 13:44 Pulse Ox 93 04/22/22 14:15 Laboratory Results - last 24 hr 04/20/22 04/21/22 04/22/22 23:45 17:00 05:15 WBC RBC Hgb Hct MCV MCH MCHC RDW Plt Count MPV Immature Gran % Neutrophils % Lymphocytes % Monocytes % Eosinophils % Basophils % Nucleated RBC % Absolute Neutrophils Absolute Lymphocytes Absolute Monocytes Absolute Eosinophils Absolute Basophils RBC Morphology VBG pH 7.38 VBG pCO2 40 L VBG pO2 97 VBG HCO3 24 VBG Total CO2 22 L VBG O2 Saturation 98 VBG Base Excess -2 Sodium 140 Potassium 4.2 D Chloride 107 Carbon Dioxide 24.5 Anion Gap 8.5 BUN 28 H Creatinine 1.3 H Est GFR (CKD-EPI 2020) 43.96 Glucose 125 H Calcium 9.1 Total Bilirubin 0.4 AST 33 ALT 26 Alkaline Phosphatase 68 Total Protein 6.4 Albumin 3.1 L Urine Legionella Ag Negative 04/22/22 05:15 WBC 20.59 H RBC 4.02 Hgb 10.8 L Hct 34.2 L MCV 85 MCH 26.9 L MCHC 31.6 L RDW 16.5 H Plt Count 254 MPV 9.9 Immature Gran % 0.6 Neutrophils % 89.3 Lymphocytes % 2.3 Monocytes % 7.7 Eosinophils % 0.0 Basophils % 0.1 Nucleated RBC % 0.0 Absolute Neutrophils 18.39 H Absolute Lymphocytes 0.47 L Absolute Monocytes 1.59 H Absolute Eosinophils 0.00 Absolute Basophils 0.02 RBC Morphology Normal VBG pH VBG pCO2 VBG pO2 VBG HCO3 VBG Total CO2 VBG O2 Saturation VBG Base Excess Sodium Potassium Chloride Carbon Dioxide Anion Gap BUN Creatinine Est GFR (CKD-EPI 2020) Glucose Calcium Total Bilirubin AST ALT Alkaline Phosphatase Total Protein Albumin Urine Legionella Ag Time Spent with Patient Time Spent with Patient: 25-34 minutes Time was spent: preparing to see the patient(eg.review tests), ordering medications,tests, procedures, referring, communicating with other health career development specialist and indepentently interpreting results
[2022-04-22] MEDS: Ipratropium 0.5 MG/2.5 ML UPD VIAL UPD ×3 (16:02→23:46)
[2022-04-22] MEDS: Levalbuterol 1.25 MG/3 ML UPD VIAL UPD ×3 (16:02→23:46)
[2022-04-22] MEDS: Pantoprazole 40 MG VIAL IVP (23:12)
[2022-04-23] VITALS (112 sets, daily range): BP systolic 139–193; BP diastolic 72–100; PULSE 20–124; RESP 4–119; TEMP 36.9–37.5; O2SAT 84–99
[2022-04-23] MEDS: MORPHine 2 MG/ML SYR IVP ×2 (00:43→05:24)
[2022-04-23] MEDS: Normal Saline Flush 10 ML SYR IVP ×2 (00:44→08:53)
[2022-04-23] MEDS: MORPHine 2 MG/ML SYR IM (03:11)
[2022-04-23] MEDS: Ipratropium 0.5 MG/2.5 ML UPD VIAL UPD ×5 (04:08→19:42)
[2022-04-23] MEDS: Levalbuterol 1.25 MG/3 ML UPD VIAL UPD ×5 (04:08→19:42)
[2022-04-23] MEDS: Levalbuterol 0.63 MG/3 ML UPD VIAL UPD (04:27)
[2022-04-23 06:30] LABS: Anion Gap 7.6 mmol/L (3-11); BUN 23 mg/dL (7-18); CO2 29.4 mmol/L (21.0-32.0); CREATININE 0.9 mg/dL (0.55-1.02); Calcium 9.5 mg/dL (8.5-10.1); Chloride 107 mmol/L (98-107); Estimated GFR 68.35 (mL/min/1.73m2); Glucose 100 mg/dL (74-106); Potassium 3.6 mmol/L (3.5-5.1); Sodium 144 mmol/L (136-145)
--- NOTE | 2022-04-23 07:10 | W.PULMCC ---
General Date of Service Date of service: 04/23/22 Time of Service: 07:10 Reason for Admission to ICU: Acute hypoxic and hypercapnic respiratory failure Assessment and Plan Assessment and plan (1) Acute hypotension: Status: Acute (2) Acute respiratory failure with hypoxia and hypercarbia: Status: Acute (3) GERD (gastroesophageal reflux disease): Status: Chronic (4) COPD exacerbation: Status: Acute (5) Hypokalemia: Status: Acute (6) Sacral decubitus ulcer: Status: Acute (7) ARMIN (acute kidney injury): Status: Acute (8) Leukocytosis: Status: Acute Assessment and plan: This is a 71 yo admitted to the ICU after being intubated at OSH for acute hypoxic and hypercapnic respiratory failure due to a COPD exacerbation. She was successfully extubated yesterday to BiPAP 12/04 and has tolerated it quite well yesterday and overnight. She will need outpatient assessment for NIV chronically at night, but she does not need this prior to discharge. We will have her on nasal cannula today to try to wean off the BiPAP. Once she is able to liberate from the BiPAP for 24 hours, she will be safe to transfer back to [facility]. Recommendations Pulmonary: Acute hypoxic and hypercapnic respiratory failure - continue Symbicort 80 and Spiriva (patient on Trelegy as an outpatient) - will adjust Duonebs to be given QID as opposed to q4h now that she is extubated - s/p extubation to BiPAP 04/22/22 - wean to nasal cannula today - can be made med surg status - plan to transfer to [facility] tomorrow if she tolerates nasal cannula for the next 24 hours - recommend out of bed to chair COPD Exacerbation - continue inhaler and nebs as above - IV methylpred 40mg daily - if safe for swallowing - this can be changed to prednisone 40mg PO daily, would recommend a taper: - 40mg for a total of 5 days, 30mg for 5 days, 20mg for 3 days, 10mg for 3 days, 5mg for 3 days - doxycycline for a total of 5 days - I will see patient as an outpatient after discharge Cardiac: Hypotension, resolved - likely due to sedation - Levophed no longer needed - no further IVF's needed Renal: ARMIN - resolved - strict I/O's I&O: Intake & Output 02/04/21/22 04/22/22 04/23/22 23:59 23:59 23:59 23:59 Intake Total 4492.291 / 4492.291 930.453 / 930.453 100 / 100 Output Total 150 / 150 1660 / 1660 2750 / 2925 1250 / 1250 Balance -150 / -150 2832.291 / 2832.291 -1819.547 / -1994.547 -1150 / -1150 Weight 66.7 kg 66 kg 68.3 kg 61.3 kg Daily Fluid Goal:: even GI Nutrition: Nutrition - PSYCHIATRIC AIDE INSTRUCTOR consulted to assess swallowing - can get diet once completed Date of Last Bowel Movement: 04/22/22 Infectious Disease: Concern for pulmonary infection - procalcitonin negative - Levaquin changed to doxycycline (no pneumonia seen on imaging) - urine antigens for strep pending, legionella is negative - sputum culture pending Sacral wound, present on admission - Mepelex, consider wound consult Hematologic: Leukocytosis - likely reactive/steroids Neurologic: No acute concerns Endocrine: Hyperglycemia - low SSI added with q6h fingersticks Lines: PIV Cohen - can discontinue today Prophylaxis: Lovenox Protonix - will discontinue, no longer intubated Code Status: Resuscitation Status DNR Subjective Critical and life-threatening events over the past 24 hours: Her renal function is improved today after some diuresis. She is now even for her hospital stay. She tolerated BiPAP yesterday and overnight. She is doing well. Feels her breathing is so-so. Exam Narrative Exam Narrative: POCUS 04/21/21: Good views at all cardiac POCUS sites. Good LV and RV function. Septum does seem to be enlarged, although no clear JOSH, if she were underfilled this could be possible. IVC is plump(2.42cm) with no collapse (patient is mechanically ventilated). Gen: intubated and sedated HENT: pupils minimally reactive Chest: No respiratory distress, normal appearance of chest, clear to auscultation bilaterally, bilateral expiratory wheezes anteriorly Heart: regular rate and rhythym, no murmurs, rubs or gallops Abdomen: Non-distended, soft, non tender Extremities: No clubbing, edema, cyanosis, rashes Neuro: off sedation patient follows commands appropriately Psych: cooperative Most Recent VS/Results Last Vital Signs Temp 36.9 C 04/23/22 03:26 Pulse 20 L 04/23/22 04:08 Resp 14 04/23/22 05:52 BP 162/90 H 04/23/22 03:01 Pulse Ox 94 04/23/22 05:52 Laboratory Results - last 24 hr 04/20/22 04/23/22 23:45 05:25 Sodium 144 Potassium 3.6 Chloride 107 Carbon Dioxide 29.4 Anion Gap 7.6 BUN 23 H Creatinine 0.9 Est GFR (CKD-EPI 2020) 68.35 Glucose 100 Calcium 9.5 Urine Legionella Ag Negative Review of Systems All systems reviewed & are unremarkable except as noted in HPI and below Time spent with patient Time spent in Critical Care: 45 Time spent in Critical care included: Chart review, Documenting critically ill care, Time at immediate bedside and Discussing critically ill care with other medical staff Multi-Disciplinary Checklist Lines/Tubes CENTRAL LINE: no ARTERIAL LINE: no COHEN: yes, Cohen Day#: 3 ENDOTRACHEAL TUBE: no ICU Maintenance GLUCOSE 140-180mg/dL: yes NUTRITION AT GOAL: no, Reason/Intervention: Speech consultation today for swallowing safety PRESSURE ULCER: yes, RESTRAINTS: no ANTIBIOTICS(if yes, consider Stewardship): Yes Social Issues FAMILY UPDATED: yes PT/OT: yes GOALS/DISPOSITION/TRAVEL SPECIALIST: yes CODE STATUS: DNR,Intubation OK Prophylaxis DVT PROPHYLAXIS: yes GI PROPHYLAXIS: no
[2022-04-23 07:57] LABS: Abs Immature Grans 0.13 10^3/uL (0.0-0.06); HCT 35.6 % (36.0-46.0); HGB 11.5 g/dL (11.2-15.7); MCHC 32.3 % (32.0-36.0); MCV 84 fL (80-95); MPV 10.1 fL (8.0-11.0); Platelet Count 278 10^3/uL (130-400); RBC 4.26 10^6/uL (3.93-5.22); RDW 16.7 % (11.7-14.6); RDW-SD 50.7 fL; WBC 21.62 10^3/uL (4.4-10.8)
[2022-04-23 08:07] LABS: Absolute Lymphocyte Count 0.22 10^3/uL (1.2-3.4); Absolute Monocyte Count 1.08 10^3/uL (0.1-0.8); Absolute Neutrophil Count 20.32 10^3/uL (1.2-6.7); Atypical Lymphocytes % 0; Bands % 0; Diff Comment Manual Differential; RBC Morphology Normal
[2022-04-23] MEDS: Tiotropium Bromide-Respimat 10 PUFF INH 2 PUFF IH (08:19)
[2022-04-23] MEDS: Budesonide/Formoterol 80/4.5 6.9 GM 60 PUFF INH IH ×2 (08:20→19:43)
--- NOTE | 2022-04-23 08:26 | PDOC.CMPRO ---
- If Service Date Differs Date of service: 04/23/22 Time of Service: 08:26 Care Management Progress Note S/O: Fifi transitioned to Med/Surg status this morning, CM continues to follow. A: 71 year old female admitted to [facility] 04/20/22 for acute hypoxemic respiratory failure P: Fifi continues to be closely monitored, she will be evaluated for further needs prior to discharge. Per Hospitalist, [facility] has agreed to accept patient back when medically stable and out of ICU status. CM continues to follow.
[2022-04-23] MEDS: methylPREDNISolone SUCC 40 MG VIAL IV (08:52)
[2022-04-23] MEDS: Enoxaparin 40 MG/0.4 ML SYR SC (08:54)
--- NOTE | 2022-04-23 09:26 | W.SPSTE ---
Date of service: 04/23/22 Time of Service: 09:30 Subjective Clinical (Bedside) Swallow Evaluation Speech Language Pathology Patient referred for Clinical Swallow Evaluation from Dr Fortune given recent extubation from COPD exerbation causing respiratory failure. Precautions: DNR, standard, fall. HPI: Pt is a 71 year old female admitted with acute respiratory failure with hypoxia and hypercarbia secondary to COPD exacerbation. Predisposing dysphagia risk factors: COPD, GERD Clinical signs of possible chronic dysphagia: concern for pulmonary infection though no pna seen on imaging Precipitating dysphagia risk factors / triggering event: intubation Subjective: Fifi Mcmullen) was contacted at bedside this morning for Clinical Swallow Evaluation. Per RN she is tolerating sips of thin liquid and regular oral care. [place] reports frequent lightheadedness. Denies pain. Endorses shortness of breath, dry mouth. Reports current persistent globus sensation outside of and during PO intake, which is worse than baseline. She has been taking small sips of water since extubated and is unsure of current swallow function. Objective Objective Respiratory Status: 3L O2 via nasal cannula. Open mouth breathing posture. Consistently phonating on exhale (not volitional). Occasional unproductive congested coughing at baseline. Per RN, O2 saturation of 87 is current goal to maintain. Mental Status: Oriented to month, year, self, place. Unsure of exact date which is understandable given the circumstances. Communication: Able to make wants/needs known, follows instructions as needed for completion of clinical swallow exam without need for clarification. Able to speak in short sentences (limited by respiratory support). Patient denies any hearing impairment and is able to accurately responds to questions posed at a normal conversational volume. Oral care: Appreciate diligent and frequent oral care provided by ICU staff. Minimal plaque buildup, do not appreciate any ulceration. Provided oral care with in-line suction sponges and hydrogen peroxide rinse prior to PO trials. Dentition: Patient largely edentulous with 2 remaining teeth. No dentures. Oral Motor screening: Symmetry of facial/labial/lingual muscles at rest and upon retraction/excursion: YES Mild lingual weakness against resistance, suspect impacted by overall fatigue and SOB. Facial/labial strength against resistance intact. Coordination intact for all structures. Volitional swallow: Unable to initiate, likely secondary to dry mouth. Improves with ice chips but suspect reduced hyolaryngeal movement to palpation. Velopharynx raises symmetrically to phonation. Sensation not tested. Phonation: Low breath support, notable vocal infante at baseline, improves with cues for clear voice quality but remains with rough/hoarse vocal quality. Max phonation time = 5 seconds. Cough appears sharp and strong but is unproductive despite obvious congestion. Laryngeal AMR: WNL PO Trials: Ice chips X3 IDDSI 0: Thin liquids via tsp: X6, Thin liquids via straw: X5 small sips (cues for sip size) IDDSI 4: Puree (pudding) via tsp x2 (patient refuses further trials) Oral phase: No oral residue for puree. No anterior escape. Timely a/p transit. Mastication not observed. Pharyngeal phase: 1x mild cough/throat clear to thin liquids when presented via tsp, though difficulty to differentiate from baseline cough noted during exam. Patient endorses difficulty with pharyngeal clearance of pudding it's too thick for my throat. Patient endorses something stuck in my throat localizes to appriximately level of UES/hypopharynx vs larynx. Not improved with liquid wash Esophageal phase: Significant belching noted during and after PO trials. Respiratory observations: Patient maintains O2 saturation 84-85 throughout trials and complains of lightheadedness throughout. --- Provided education to: Patient, Nursing Topics Addressed: anatomy/physiology of swallowing mechanism, overt s/sx to monitor for re: potential aspiration of food / liquids, recommendations for improved oral care, relationship between respiratory function changes and deglutition, Rationale for recommendations as outlined below Outcome: Verbalized/demonstrated understanding Assessment IMPRESSIONS Patient is unable to maintain adequate respiratory status during limited PO trials this date (goal of 87 % O2). She also demonstrates s/sx esophageal dysphagia/UES dysfunction such as belching and globus sensation, though the latter may also be explained at least in part by altered sensation secondary to intubation trauma. Phonation appears minimally impacted and suspect largely due to respiratory function, but will monitor for signs of laryngeal insufficiency. Suspect acute vs [id number] pharyngeal-esophageal dysphagia, though extent of contribution of post-extubation status and current respiratory demands vs baseline dysphagia remains unclear to me. She should remain NPO at this time given inability to adequately tolerate extended PO trials from a respiratory standpoint. She may participate in limited PO trials of water and applesauce (slick puree) with RN or MOTORCYCLE RACER only, following strict risk management protocol as outlined in recommendations below. Encourage reflux positioning precautions as outlined below to reduce likelihood of reflux aspiration. Recommendations: DIET STATUS: NPO with limited PO trials of Thin liquids and [place] Purees (applesauce) MOTORCYCLE RACER and other trained caregivers (RN). Medication status: Crushed as able in applesauce, with sip water to wash it down. For PO trials: Max 10 sips water or ice chips and 4-5 bites applesauce per session, 1x every 2 hours. Provide thin liquids via straw and instruct patient to take 1 small sip at a time. Monitor O2 saturation and if patient desaturates, STOP PO intake and wait several hours before trying again. Provide diligent oral care every 2-3 hours or before/after PO intake to minimize oral bacteria and risk of pulmonary complications of aspiration. Patient should be as upright as possible for all PO trials. Level of Assistance/Supervision: 1:1 close supervision/assist for all PO intake, Posture/Positioning Needs: Maintain upright position at least 30 minutes after meals, Avoid meals/snacks 2-3 hours prior to reclining/sleeping, Sleep with head of bed elevated to reduce likelihood of nocturnal reflux Plan MOTORCYCLE RACER to follow while on unit. Short Term Goals: Patient will tolerate safest/least restrictive PO diet without s/sx aspiration or respiratory decompensation. - Current goal: Purees/Thin liquids Patient/caregiver will be independent with aspiration precautions, diet modifications, and safe swallowing strategies. CODIN Clinical Swallow Evaluation x30 minutes Coding Diagnoses
[2022-04-23] MEDS: DOXYCYCLINE 100 MG in Normal Saline 100 ML IVPB ×2 (10:54→23:02)
[2022-04-23] MEDS: Normal Saline 500 ML 30 ML IV (10:55)
--- NOTE | 2022-04-23 13:32 | W.PM.PROGNOT ---
Date of Service Date of service: 04/23/22 Time of Service: 13:32 Assessment and Plan Assessment and plan (1) Acute respiratory failure with hypoxia and hypercarbia: Status: Acute Assessment and plan: Acute on chronic respiratory failure with hypercarbia and hypoxemia secondary to COPD exacerbation with symptoms suggestive of acute purulent bronchitis. Pulmonary/critical care following. Extubated to BiPAP then HFNC. Now on regular NC at 3L. (2) COPD exacerbation: Status: Acute Assessment and plan: Significant COPD with exacerbation. Symbicort, Spiriva, levalbuterol/ipatropium, prn levalbuterol. Methylprednisolone 40mg IV daily. Doxycycline. (3) Acute hypotension: Status: Acute Assessment and plan: Resolved; occurred while sedated. Monitor. (4) GERD (gastroesophageal reflux disease): Status: Chronic Assessment and plan: iv protonix (5) DVT prophylaxis: Status: Acute Assessment and plan: lovenox 40 mg sc daily (6) Sacral decubitus ulcer: Status: Acute Assessment and plan: Present on admission. Offloading. Wound care / protection. (7) ARMIN (acute kidney injury): Status: Acute Assessment and plan: Mild with initial creatinine of 1.3; now 0.9. (8) Discharge planning issues: Status: Acute Assessment and plan: If remains stable off high flow O2 or BiPAP planning to transfer back to [facility] tomorrow if a bed is available. Subjective Subjective Patient reports: no new complaints, feels better, shortness of breath (Not while on supplemental O2) and afebrile; denies nausea or vomiting Exam Narrative Exam Narrative: Elderly female with NC in place. NAD. Neck supple no rigidity no overt JVD Lungs with scattered exp wheezes anteriorly. Some improvement in air movement. Heart RRR, S1, S2. Abdomen protuberant but soft nondistended. Nontender. Extremities without peripheral cyanosis or edema Neuro: Beverly. Objective Last Vital Signs Temp 36.9 C 04/23/22 03:26 Pulse 101 H 04/23/22 12:37 Resp 18 04/23/22 12:37 BP 171/83 H 04/23/22 10:27 Pulse Ox 93 04/23/22 12:55 Laboratory Results - last 24 hr 04/23/22 04/23/22 05:25 07:43 WBC 21.62 H RBC 4.26 Hgb 11.5 Hct 35.6 L MCV 84 MCH 27.0 MCHC 32.3 RDW 16.7 H Plt Count 278 MPV 10.1 Immature Gran % 0.0 Neutrophils % 94.0 Band Neutrophils % 0 Lymphocytes % 1.0 Atypical Lymphs % 0 Monocytes % 5.0 Eosinophils % 0.0 Basophils % 0.0 Nucleated RBC % 0.0 Absolute Neutrophils 20.32 H Absolute Lymphocytes 0.22 L Absolute Monocytes 1.08 H Absolute Eosinophils 0.00 Absolute Basophils 0.00 RBC Morphology Normal Sodium 144 Potassium 3.6 Chloride 107 Carbon Dioxide 29.4 Anion Gap 7.6 BUN 23 H Creatinine 0.9 Est GFR (CKD-EPI 2020) 68.35 Glucose 100 Calcium 9.5 Time Spent with Patient Time Spent with Patient: <25 minutes Time was spent: preparing to see the patient(eg.review tests), ordering medications,tests, procedures, referring, communicating with other health nurse care manager and indepentently interpreting results
[2022-04-23 14:28] LABS: Streptococcus Pneumoniae Ag, U Negative (Negative)
--- NOTE | 2022-04-23 16:19 | STREC_ITS ---
Date of service: 04/23/22 Time of Service: 16:20 Speech Therapy Recommendations Report ST Recommendations: Non treatment note: Patient has moved to [facility] surge status. Per RN, patient at this time with O2 desaturation and increased shortness of breath with exertion such as repositioning and unlikely to tolerate full meals. Recommend to maintain recommendations for limited PO trials of water and applesauce overnight. If patient's respiratory status improves notably (improved activity tolerance, decreased reliance on oxygenation), puree/thin diet may be initiated per medical team's discretion overnight/tomorrow morning. If patient's respiratory status is stable, maintain current HORSE STUD MANAGER recommendations and await further HORSE STUD MANAGER re-evaluation tomorrow. If patient's respiratory status worsens (e.g, return to bipap), stop PO trials and await HORSE STUD MANAGER recommendations. Current HORSE STUD MANAGER recommendations: DIET STATUS: NPO with limited PO trials of Thin liquids and [place] Purees (applesauce) HORSE STUD MANAGER and other trained caregivers (RN). Medication status: Crushed as able in applesauce, with sip water to wash it down. For PO trials: Max 10 sips water or ice chips and 4-5 bites applesauce per session, 1x every 2 hours. Provide thin liquids via straw and instruct patient to take 1 small sip at a time. Monitor O2 saturation and if patient desaturates, STOP PO intake and wait several hours before trying again. Provide diligent oral care every 2-3 hours or before/after PO intake to minimize oral bacteria and risk of pulmonary complications of aspiration. Patient should be as upright as possible for all PO trials. Level of Assistance/Supervision:?1:1 close supervision/assist for all PO intake, Posture/Positioning Needs: Maintain upright position at least 30 minutes after meals, Avoid meals/snacks 2-3 hours prior to reclining/sleeping, Sleep with head of bed elevated to reduce likelihood of nocturnal reflux Coding
[2022-04-23] MEDS: Rosuvastatin 10 MG TAB 20 MG PO (19:41)
[2022-04-24] VITALS (16 sets, daily range): BP systolic 134–163; BP diastolic 84–96; PULSE 91–112; RESP 4–20; TEMP 36.6–37.4; O2SAT 88–95
[2022-04-24] MEDS: Levalbuterol 0.63 MG/3 ML UPD VIAL UPD (02:18)
[2022-04-24] MEDS: Levalbuterol 1.25 MG/3 ML UPD VIAL UPD ×3 (08:23→19:15)
[2022-04-24] MEDS: Ipratropium 0.5 MG/2.5 ML UPD VIAL UPD ×3 (08:24→21:15)
[2022-04-24] MEDS: Budesonide/Formoterol 80/4.5 6.9 GM 60 PUFF INH IH ×2 (08:27→23:07)
[2022-04-24] MEDS: Tiotropium Bromide-Respimat 10 PUFF INH 2 PUFF IH (08:27)
[2022-04-24] MEDS: amLODIPine 10 MG TAB PO (09:25)
[2022-04-24] MEDS: guaiFENesin 600 MG TABCR PO (09:26)
[2022-04-24] MEDS: methylPREDNISolone SUCC 40 MG VIAL IV (09:26)
[2022-04-24] MEDS: Enoxaparin 40 MG/0.4 ML SYR SC (09:26)
[2022-04-24] MEDS: Omeprazole 20 MG CAPCR 40 MG PO (09:26)
[2022-04-24] MEDS: Normal Saline Flush 10 ML SYR IVP (09:27)
[2022-04-24] MEDS: Simethicone 80 MG CHEW 240 MG PO ×3 (09:27→23:08)
--- NOTE | 2022-04-24 09:47 | PDOC.CMPRO ---
- If Service Date Differs Date of service: 04/24/22 Time of Service: 09:47 Care Management Progress Note S/O: Fifi remains inpatient[facility]. Fifi continues to work with PT; anticipate home PT orders upon discharge. CM continues to follow. A: 71 year old female admitted to [facility] 04/20/22 for acute hypoxemic respiratory failure P: Fifi will return home with new orders for [facility] PT upon discharge. She will follow up with her PCP and plan of care as prescribed and transport via private vehicle with her . CM continues to follow.
[2022-04-24] MEDS: DOXYCYCLINE 100 MG in Normal Saline 100 ML IVPB (09:53)
--- NOTE | 2022-04-24 11:01 | SPP_ITS ---
Date of service: 04/24/22 Time of Service: 10:12 Subjective PROGRAM DIRECTOR CABLE TELEVISION received nursing report pt is saturating at 88%. Conversational, alert, propped upright ~75 degrees in bed. Per nsg, tolerated applesauce and water well but c/o Mucinex pill sticking in throat despite being cut in half. Pt continued to c/o pharyngeal residue during assessment today. Intermittent productive cough at baseline. Also c/o gas pain on L side of abdomen. Demonstrated s/sx esophageal dysphagia throughout visit i.e., eructation. Oral mucosa was moist and pink. Objective/Assessment/Plan Objective Treatment Techniques & Outcomes: Pt was assessed with thin liquids by cup/straw, pureed solids, and [facility]regular solids (pt dipped joelle crackers in a.s.). Pt nearly edentulous and stated she takes a long time to eat at home- usually the first one seated and the last one finished eating. Overt s/sx airway disturbance noted with thin liquids by cup- brief aphonia and wet vocal quality. No overt s/sx with nectar thick liquids by cup x2 or thin liquids by straw x3. Increased cough present with dry joelle cracker and with thin liquids by straw when alternating with mixed pureed/regular texture. Work of breathing increased during mastication, evidenced by audible inhalation/exhalation. Patient/Caregiver/Staff Education: Patient was provided rationale for recommended diet level and when to use incentive spirometer/vibra PEP in order to conserve energy for meals. PROGRAM DIRECTOR CABLE TELEVISION also educated nursing on strategies to assist with pill clearance. Assessment Pt presents with mild acute oropharyngeal dysphagia but appears appropriate for initiation of oral diet due to stabilizing oxygen saturation and level of alertness. Recommend small, single sips of thin liquids by straw, soft and bite- sized solids, and pills whole in puree or with nectar thick liquids. [place] thick liquid may be more effective at clearing pill from pharynx/proximal esophagus due to increased weight/viscosity. Continue to complete aggressive oral care after meals and implement reflux precautions as indicated below. Plan Plan: ST will continue to follow for diet advancement/tolerance as able. Recommendations Diet: 6-Soft & Bite Size(advanced/chopped) Liquids: 0-Thin Liquids Other: medications taken with thick puree or nectar thick liquids Strategies/Adaptions: Use supports to ensure upright/midline posture, Small bites, Small sips, Use straws, Small meals per day, Upright for at least 30 minutes after meal and Oral care at least 2x/day Supervision: Monitor O2 stats(do not feed patient if O2 under 90%) Total Time Spent: 34 minutes Coding Diagnoses Dysphagia R13.10 Assessment and Plan Assessment and plan (1) Dysphagia: Status: Acute
--- NOTE | 2022-04-24 11:32 | PT.INIE ---
PT Notes Visit Reasons: Acute Hypoxemic Respiratory Failue Inpatient Physical Therapy Evaluation Date: 04/24/22 Referring Doctor: Dr. Fortune PT Orders: PT CONSULT: limited ability to ambulate Precautions: standard Patient Profile/Admitting Diagnosis: Patient admitted from [facility] for ICU level care on 04/21/22 for management of tachypnea, tachycardia and hypoxemia requiring intubation and mechanical ventilation. She was extubated 04/22/22. PT orders received today for evaluation and treatment. PMHX: All Active Problems?(Updated 04/21/22 @ 02:42 by Uche Madera MD) DVT prophylaxis (Acute) Acute hypotension (Acute) Acute respiratory failure with hypoxia and hypercarbia (Acute) Varicose veins of lower extremities with inflammation (Acute) Recurrent major depression (Acute) Psoriasis (Chronic) Obstructive sleep apnea (Chronic) Myoclonus (Acute) Lumbar spondylosis (Acute) Lumbago with sciatica (Acute) Iron deficiency anemia (Acute) Essential hypertension (Acute) Hyperlipidemia (Acute) Hyperglycemia (Acute) GERD (gastroesophageal reflux disease) (Chronic) Eustachian tube disorder (Acute) Dysphagia (Acute) Hiatal hernia (Chronic) Degenerative joint disease involving multiple joints (Acute) Atopic dermatitis (Acute) Arthropathy (Acute) Anemia (Chronic) COPD exacerbation (Acute) Medical History?(Updated 04/21/22 @ 02:42 by Uche Madera MD) Benign neoplasm of endocrine gland Cardiac arrhythmia Former tobacco use History of non-ST elevation myocardial infarction (NSTEMI) Inflammatory dermatosis Pleurisy Social History/Home Situation: Lives with in a private home. Three outdoor steps to enter. Ambulates without AD at baseline. Drives and participates in community activities. Equipment Owned/DME: none Subjective: Le states that she is very anxious to get up. She is hoping to sit in the chair today. States that she's totally independent at baseline, but fairly inactive, especially in the past year. Feels that this has been a wake up call. Objective: General Observation: Resting in bed with 3.5L supplemental O2 via nasal cannula. Mental Status: A&Ox3 Pain: denies Vital Signs: Resting: HR 105, SaO2 93% Standing: HR 115, SaO2 90%, improving to 92% with static standing x 30 seconds Post-ambulation: HR 122, SaO2 87%. Improves to 90% with pursed lip breathing x 20 seconds. ROM: Right Upper Extremity: WFL Left Upper Extremity: WFL Right Lower Extremity: WFL with the exception of right ankle, which is surgically fused Left Lower Extremity: WFL Strength: Right Upper Extremity: Shoulder flexion 4-/5. Triceps 3+/5. Boilermaker Welder is weak, but equal. Left Upper Extremity: Shoulder flexion 4-/5. Triceps 3+/5. Boilermaker Welder is weak, but equal. Right Lower Extremity: Hip flexion 4/5. Quads 4/5. Ankle DF 5/5. Left Lower Extremity: Hip flexion 4/5. Quads 4/5. Ankle DF 5/5. Bed Mobility/Transfers: supine-sit: supervision sit-stand: min A stand-sit: CGA and cues for technique stand-pivot (bed to commode): CGA, and assist for management of O2 tubing Gait: Ambulates 8' with FWW, CGA, and assistance for managing oxygen tubing. Performed on 3.5LPM supplemental O2, with vitals as noted above. Demonstrates increasing [place] with ambulation. Balance: Static Sitting: good Dynamic Sitting: good Static Standing: good Dynamic Standing: fair Special Tests: Mobility Limitations Standardized Measure [facility] AM-PAC 6 clicks Basic Mobility Inpatient Short Form: Raw Score: 20 CMS Score: 36% impairment Informed Consent/Education: Patient instructed in purpose of PT consult and plan of care. Treatment: Initial Evaluation ([id number]) Therapeutic Activities ([id number]): Gait and transfer training, with cues for pursed lip breathing and equipment management. Introduced pacing techniques. Instructed in supine/sitting exercises for completion between PT sessions. Patient will perform ankle pumps and quad sets hourly. Assessment: Patient is a 71 year old female referred to physical therapy services for evaluation and treatment. Patient presents with mobility impairments related to acute medical issues including acute respiratory failure, as demonstrated by the following impairment level findings: 1. Decreased activity tolerance 2. oxygen desaturation with short distance ambulation 3. UE and LE weakness 4. gait impairments Impairments are contributing to the following functional limitations: 1. unable to ambulate household distances 2. decreased activity tolerance 3. unable to ambulate unassisted Patient is assessed as Moderate [id number] complexity based on the following: History: Patient is a 71 year old female admitted for acute respiratory failure requiring ventilation. She requires skilled PT intervention to address impairments and functional limitations and allow for safe transition home once medically stable. Complicating factors include continued desaturation with functional mobility, continued tachycardia, and extensive medical history as noted above. Examination: functional limitations as noted above Presentation: evolving Decision Making: moderate complexity Goals: Goals X1 week 1. Supine-Sit : supervision 2. Sit-Supine : supervision 3. Sit-Stand : supervision 4. Stand-Sit : supervision 5. Bed-Chair : supervision with FWW 6. Chair-Bed : supervision with FWW 7. Gait : supervision with FWW 8. Stairs : CGA 9. Independent with home exercise program Plan of Care/Treatment Plan: 1-2x/day, 7 days/week x 1 week. Plan of care has been reviewed with the PRINT ROOM WORKER providing the service under Physical Therapy direction. Initiate Physical Therapy intervention for strengthening, bed mobility, transfers, gait, stairs, balance training, use of assistive device. DISCHARGE RECOMMENDATIONS: Home with services ( PT) TREATMENT CODE/TIME: 11:40 - 12:15 ([id number], [id number]) Luda Damico, PT, DPT [facility]
--- NOTE | 2022-04-24 13:33 | W.NUTRFU ---
Date of service: 04/24/22 Time of Service: 13:32 Nutrition Note NOTE: Fifi was extubated and cleared for oral diet. Some dysphagia noted. Following regular/soft/bitesized diet with thin liquids with good po intake. With pressure wound on admission- recommend liquid protein 1 oz BID, MVI, 500 mg Vit C BID. Will continue to follow. Time Spent in Nutritional Counseling and Treatment: 0
--- NOTE | 2022-04-24 14:15 | PT.INNT ---
Date of service: 04/24/22 Time of Service: 14:15 PT Notes Visit Reasons: Acute Hypoxemic Respiratory Failue 04/24/2022 Patient not available in p.m., as she is on commode with on/off bowel movement. Will attempt to resume PT services tomorrow morning.
--- NOTE | 2022-04-24 15:12 | CHAPLAIN ---
Fifi was up in the chair when I visited. She had three visitors, likely her children. One said he had just stopped smoking and at 3 p.m. today he will have gone 24 hours without smoking. I introduced myself to Fifi, explained my role and offered support. She was pleasant and thanked me for stopping in. Fifi was transferred here from [facility] and will be discharged home from here, according to Care Management notes.
--- NOTE | 2022-04-24 15:22 | PGE_ITS ---
Date of Service Date of service: 04/24/22 Time of Service: 15:28 Assessment and Plan Assessment and plan (1) Acute respiratory failure with hypoxia and hypercarbia: Status: Acute Assessment and plan: Acute on chronic respiratory failure with hypercarbia and hypoxemia secondary to COPD exacerbation with symptoms suggestive of acute purulent bronchitis. Pulmonary/critical care following. Extubated to BiPAP then HFNC. Now on regular NC at 3L. Added guaifenesin for congestion. (2) COPD exacerbation: Status: Acute Assessment and plan: Significant COPD with exacerbation. Symbicort, Spiriva, levalbuterol/ipatropium, prn levalbuterol. Methylprednisolone 40mg IV daily; changing to po prednisone and will then taper. Doxycycline. (3) Acute hypotension: Status: Acute Assessment and plan: Resolved; occurred while sedated. Monitor. (4) GERD (gastroesophageal reflux disease): Status: Chronic Assessment and plan: Omeprazole daily. (5) DVT prophylaxis: Status: Acute Assessment and plan: lovenox 40 mg sc daily (6) Sacral decubitus ulcer: Status: Acute Assessment and plan: Present on admission. Offloading. Wound care / protection. (7) ARMIN (acute kidney injury): Status: Acute Assessment and plan: Mild with initial creatinine of 1.3; now 0.9. (8) Discharge planning issues: Status: Acute Assessment and plan: If remains stable off high flow O2 or BiPAP planning to transfer back to [facility] when a bed is available. Subjective Subjective Patient reports: no new complaints, feels better, tolerating a regular diet, shortness of breath (with activity) and afebrile; denies nausea or vomiting Exam Narrative Exam Narrative: Elderly female with NC in place. NAD. Pleasant and conversant. Neck supple no rigidity no overt JVD Lungs with scattered exp wheezes anteriorly. Some improvement in air movement. Heart RRR, S1, S2. Abdomen protuberant but soft nondistended. Nontender. Extremities without peripheral cyanosis or edema Neuro: Beverly. Objective Last Vital Signs Temp 36.9 C 04/24/22 15:08 Pulse 107 H 04/24/22 15:08 Resp 20 04/24/22 15:08 BP 144/87 H 04/24/22 15:08 Pulse Ox 91 L 04/24/22 15:08 Time Spent with Patient Time Spent with Patient: 25-34 minutes Time was spent: preparing to see the patient(eg.review tests), ordering medications,tests, procedures, indepentently interpreting results and counseling the patient
[2022-04-24] MEDS: Rosuvastatin 10 MG TAB 20 MG PO (23:08)
[2022-04-25] VITALS (8 sets, daily range): BP systolic 119–133; BP diastolic 76–89; PULSE 67–126; RESP 4–18; TEMP 36.3–37.1; O2SAT 88–94
[2022-04-25] MEDS: DOXYCYCLINE 100 MG in Normal Saline 100 ML IVPB ×2 (00:49→10:27)
[2022-04-25] MEDS: Tiotropium Bromide-Respimat 10 PUFF INH 2 PUFF IH (07:38)
[2022-04-25] MEDS: Budesonide/Formoterol 80/4.5 6.9 GM 60 PUFF INH IH (07:38)
[2022-04-25] MEDS: Levalbuterol 1.25 MG/3 ML UPD VIAL UPD ×2 (07:39→12:48)
[2022-04-25] MEDS: Ipratropium 0.5 MG/2.5 ML UPD VIAL UPD ×2 (07:39→12:48)
[2022-04-25] MEDS: Enoxaparin 40 MG/0.4 ML SYR SC (08:21)
[2022-04-25] MEDS: amLODIPine 10 MG TAB PO (08:22)
[2022-04-25] MEDS: predniSONE 20 MG TAB 30 MG PO (08:22)
[2022-04-25] MEDS: Omeprazole 20 MG CAPCR 40 MG PO (08:22)
[2022-04-25] MEDS: Normal Saline Flush 10 ML SYR IVP ×2 (08:23→10:27)
--- NOTE | 2022-04-25 11:35 | PT.INTREAT ---
Date of service: 04/25/22 Time of Service: 09:54 PT Notes Visit Reasons: Acute Hypoxemic Respiratory Failue Inpatient Physical Therapy Treatment Note [facility] Date: 04/25/2020 PRECAUTIONS: Activity as tolerated, Fall, monitor SaO2 SUBJECTIVE: Fifi is pleasant and agreeable to participating in PT. She states that she has been having a rough week, both personally and with her family. OBJECTIVE: PAIN: No c/o pain BED MOBILITY/TRANSFERS Stand-sit: CGA Stand-sit: SBA GAIT Assistive Device: FWW Weight bearing: Full Assist: SBA Distance: 40' + 20' Deviation: Slow pacing, SOB, seated rest x1 THEREX: Patient was instructed in a LE strengthening program, completed in a seated position, to include: ankle pumps, heel raises, LAQ, hip flexion, hip and abduction. ASSESSMENT: Patient tolerated session with complaint of SOB with gait training. Patient demonstrates global weakness and limited activity tolerance at this time. PLAN: Patient to transfer back to [facility] later today, per provider. TREATMENT CODE/TIME: 31 minutes; 58551 x2 (09:54)
--- NOTE | 2022-04-25 12:36 | SPP_ITS ---
Date of service: 04/25/22 Time of Service: 11:47 Subjective Patient was encountered during lunch meal to assess diet tolerance/safety since initiation of PO diet yesterday. On 3L O2 via NC. Reports she had trouble chewing green beans during dinner last night. Nursing had not yet given Mucinex pill. Cough has not been as productive as yesterday, she states more is coming out of my nose than my mouth. She also has decreased GI symptoms compared to yesterday's visit because she has been able to have two bowel movements. Objective/Assessment/Plan Objective Treatment Techniques & Outcomes: Seated upright 90 degrees in recliner, pt was assessed with chicken noodle soup, applesauce, and thin water via straw. She demonstrated occasional dry sounding cough following moderately sized bites of soup, c/o inability to chew chunks of chicken. She was agreeable to downgrading to ground meat- will continue with soft and bite-sized solids otherwise. No overt s/sx airway disturbance noted with thin liquids. Oral cavity was clear between bites and pt denied sensation of pharyngeal residue. Patient/Caregiver/Staff Education: FURNACE PROCESS SUPERVISOR educated patient and nursing regarding pill dysphagia. Pt requested nsg cut Mucinex pill into quarters because of difficulty with halved pill yesterday. Nsg stated this would likely not be feasible due to pill potentially crumbling (cannot be crushed). FURNACE PROCESS SUPERVISOR informed pt/nsg that jagged edges when pill is cut in half may be sensed by the person more than a smooth edge. Pt was encouraged to take whole pill with large spoonful of applesauce for increased bolus weight, place pill as far back on tongue as possible, take another bite of plain a.s., then drink 3-4 oz of water. Assessment Pt demonstrates improving oropharyngeal dysphagia; expect a chronic component due to COPD and lack of dentition, but she is doing well with current diet. She is likely not back to baseline- states she can eat chicken wings and porkchops at home without difficulty but is not currently managing soft and bite-sized meats. Plan Plan: Further diet modification of ground meats. FURNACE PROCESS SUPERVISOR will continue to follow until discharge to f/u on pill dysphagia and diet safety/efficiency. Recommendations Diet: 6-Soft & Bite Size(advanced/chopped) (ground meats) Liquids: 0-Thin Liquids Other: straws Strategies/Adaptions: Pace rate of intake, Small bites, Small sips, Use straws, Small meals per day, Upright for at least 30 minutes after meal and Oral care at least 2x/day Supervision: Frequent/periodic check-ins Additional Notes: Coding- 09204: Treatment of swallowing dysfunction and/or oral function for feeding Total Time Spent: 28 minutes Coding Diagnoses
--- NOTE | 2022-04-25 12:59 | DSE_ITS ---
Date of service: 04/25/22 Time of Service: 14:24 DS: Diagnosis Discharge Diagnosis (1) Acute respiratory failure with hypoxia and hypercarbia: Status: Acute Asessment and Plan: Hypoxic, hypercarbic failure. Secondary to COPD exacerbation Pulmonary/Critical Care physician followed patient. Weaned off ventilator to BiPAP, then HFNC and now on NC at 3L O2. Not previously on home O2. (2) COPD exacerbation: Status: Acute Asessment and Plan: She was on Trelegy Ellipta at home; Symbicort therapeutic substitute while in [facility]. Xopenex with ipratropium BID and prn Xopenex. (Noted increase in HR on albuterol). Now on prednisone 30mg daily; can taper. (3) GERD (gastroesophageal reflux disease): Status: Chronic Asessment and Plan: Cont PPI (4) Sacral decubitus ulcer: Status: Acute Asessment and Plan: Present on admission. Mepilex and off-load. (5) ARMIN (acute kidney injury): Status: Acute Asessment and Plan: Resolved. (6) Discharge planning issues: Status: Acute Asessment and Plan: Transferring back to [facility] where she was initially admitted under hospitalist service. Dr Hdez accepting physician. Discharge Plan Disposition Patient Disposition: Transfer-Acute Inpatient Care Specific Acute In Facility: Other Condition: Improving Discharge Details Reason For Visit: Acute Hypoxemic Respiratory Failue Admit Date/Time: 04/20/22 21:49 Admit Provider: Uche Madera Attending Provider: Uche Madera Hospital Course Hospital Course: This 71-year-old female with a history of COPD, hypertension, GERD, hiatal hernia, dyslipidemia, former smoker (30+ pack years abstinent x3 years) presented to the emergency department on 04/20/2022 with increased dyspnea and cough and sputum production not associated with a fever or rigors.? Patient is not on home oxygen.? Patient to become progressively worse over the last few days despite increased use of her bronchodilators.? At home she uses Trelegy Ellipta and Ventolin HFA.? She was evaluated the emergency department at [facility] and admitted as a COPD exacerbation with hypoxic respiratory failure.? Per documentation from [facility] EMS found her to be 78% on room air on their arrival she was given a DuoNeb treatment by EMS and on arrival to [facility] emergency department she was 83% on 15 L nonrebreather mask.? However with treatment her SPO2 increased to 93% on 15 L via oxy mask.? Work-up in the emergency department clued routine labs showing white count 11,100 hemoglobin 13.7 g.? D-dimer 1.08.? BUN 11 creatinine 1.0.? Influenza RSV and SARS-CoV-2 testing were negative.? Chest x-ray showed no acute cardiopulmonary findings except for large hiatal hernia.? CT angiogram of the chest revealed a large esophageal hiatal hernia and emphysematous changes but no focal infiltrates.? Patient was admitted to the hospital at [facility] but progressively declined with increased tachypnea and tachycardia and hypoxemia requiring intubation and mechanical ventilation.? Patient was treated with a dose of Levaquin 750 mg IV given Solu-Medrol 40 mg.? [facility] hospitalist asked to accept the patient in transfer to our intensive care unit.? Patient received 70 mg of propofol and 50 mg of fentanyl with intubation procedure which was performed by Dr. Everett.? Postprocedure the patient had some hypotension which required fluid boluses and initiation of a norepinephrine drip.? Patient was transported to [facility] on a ketamine drip and norepinephrine drip. ?See Diagnosis Home Meds and New Rx's Prescriptions: New levalbuterol HCl 0.63 mg/3 mL Solution For Nebulization 0.63 mg UPD Q2H PRN PRNQty: 0 0RF prednisone 20 mg Tablet 30 mg PO DAILY Qty: 0 0RF doxycycline hyclate 100 mg Recon Soln 100 mg IVPB Q12H Qty: 0 0RF simethicone 80 mg Tablet,Chewable 240 mg PO PC & HS Qty: 0 0RF guaifenesin [Mucus Relief ER] 600 mg Tablet Extended Release 12hr 600 mg PO BID Qty: 0 0RF Inhaler, Assist Devices [Pocket Chamber] 1 ea miscellaneous DIRECTED Qty: 0 0RF Continued omeprazole 40 mg capsule,delayed release(DR/EC) 40 mg PO DAILY Patient Comments: TAKE ONE CAPSULE BY MOUTH EVERY DAY amlodipine 10 mg tablet 10 mg PO DAILY Patient Comments: TAKE ONE TABLET BY MOUTH EVERY DAY rosuvastatin 20 mg tablet 20 mg PO DAILY Patient Comments: TAKE ONE TABLET BY MOUTH EVERY DAY Spiriva Respimat 1.25 mcg/actuation mist 2 puff INHALATION DAILY Patient Comments: INHALE TWO PUFFS BY MOUTH EVERY DAY Darrion Jerome 100-62.5-25 mcg Blister With Device 1 inh INHALATION DAILY Held albuterol sulfate [Ventolin HFA] 90 mcg/actuation HFA aerosol inhaler 2 inh INHALATION Q4H PRN PRN Hold Instructions: Until further notice Patient Comments: INHALE TWO PUFFS BY MOUTH EVERY 4 HOURS NEEDED FOR WHEEZING Discharge Instructions Stand Alone Forms: Nursing Discharge Form Activity:: Activity as Tolerated Equipment/Supplies:: No Equipment Needed Diet:: As Tolerated Discharge Orders Discharge Orders: Discharge Order (Routine); Ordered 04/25/22 Ordered By: Deyvi Fortune DS: Summary Time Spent with Patient providing and/or coordinating discharge services: Greater than 30 minutes Status at Discharge Functional status at discharge: independent ambulation Overall status at discharge: patient is progressing back to baseline Mental Status: mental status grossly normal Speech and Movement: speech clear Mood: congruent mood Affect: normal affect Exam Narrative Exam Narrative: Elderly female with NC in place. NAD. Pleasant and conversant. Neck supple no rigidity no overt JVD Lungs with scattered exp wheezes anteriorly. Some improvement in air movement. Heart RRR, S1, S2. Abdomen protuberant but soft nondistended. Nontender. Extremities without peripheral cyanosis or edema Neuro: Beverly. Psych Mental Status: mental status grossly normal Speech and Movement: speech clear Mood: congruent mood Affect: normal affect DS: Data Vitals/I&O Vitals and I&O: Vital Signs Temperature 36.6 C 04/25/22 11:32 Temperature Source Tympanic 04/25/22 11:32 Pulse 92 H 04/25/22 11:32 Pulse Rhythm Regular 04/25/22 06:38 Pulse 104 H 04/23/22 13:40 Respiratory Rate 18 04/25/22 11:32 Respiratory Effort Normal, Non-Labored 04/25/22 06:38 Respiratory Depth Normal 04/25/22 06:38 Respiratory Pattern Normal 04/25/22 06:38 Blood Pressure 125/83 04/25/22 11:32 Blood Pressure Mean 105 04/23/22 11:01 Blood Pressure Position Supine 04/23/22 04:00 Pulse Oximetry 94 04/25/22 11:32 Respiratory End-tidal CO2 52 04/22/22 09:20 Oxygen Delivery Method Nasal Cannula 04/25/22 12:48 Oxygen Flow Rate 3 04/25/22 12:48 Fraction of Inspired Oxygen (FIO2) 35 04/23/22 08:28 Pain Level 0 04/25/22 03:58 Comment RN notified 04/23/22 03:26 Intake & Output 04/24/22 04/25/22 04/25/22 23:59 11:59 23:59 Intake Total 200 / 200 Output Total 250 / 1550 400 / 400 Balance -250 / -1350 -200 / -200 Intake: IV 200 / 200 Output: Urine 250 / 1550 400 / 400 Other: Urine Color Yellow Yellow Straw Urine Appearance Cloudy Clear Urine Odor Normal Normal Comment mixed with stool Stool Size Small Stool Characteristics Formed Brown Voiding Methods Bedside Commode Bedside Commode Data Completed and Pending Labs on day of discharge: Preliminary micro results at discharge 04/23/22 04:45 Sputum Culture - Preliminary Sputum Normal Afua PFSH All Active Problems COPD exacerbation (Acute) Anemia (Chronic) Arthropathy (Acute) Atopic dermatitis (Acute) Degenerative joint disease involving multiple joints (Acute) Hiatal hernia (Chronic) Dysphagia (Acute) Eustachian tube disorder (Acute) GERD (gastroesophageal reflux disease) (Chronic) Hyperglycemia (Acute) Hyperlipidemia (Acute) Essential hypertension (Acute) Iron deficiency anemia (Acute) Lumbago with sciatica (Acute) Lumbar spondylosis (Acute) Myoclonus (Acute) Obstructive sleep apnea (Chronic) Psoriasis (Chronic) Recurrent major depression (Acute) Varicose veins of lower extremities with inflammation (Acute) Acute respiratory failure with hypoxia and hypercarbia (Acute) Acute hypotension (Acute) DVT prophylaxis (Acute) Hypokalemia (Acute) ARMIN (acute kidney injury) (Acute) Leukocytosis (Acute) Sacral decubitus ulcer (Acute) Discharge planning issues (Acute) Medical History Benign neoplasm of endocrine gland Cardiac arrhythmia Former tobacco use History of non-ST elevation myocardial infarction (NSTEMI) Inflammatory dermatosis Pleurisy Surgical History H/O colonoscopy (~12/15/16) H/O hemorrhoidectomy (~01/30/11) H/O nasal septoplasty (~11/28/10) H/O tubal ligation H/O varicose vein ligation History of carpal tunnel release (~04/01/07) History of esophagogastroduodenoscopy (EGD) (~03/24/19) History of repair of rectocele (~03/02/01) S/P tonsillectomy Status post coronary artery stent placement (~03/14/11) Status post open reduction with internal fixation (ORIF) of fracture of ankle Family History Mother Cancer Uterine cancer Social History Smoking/Tobacco Use Status: Former Tobacco Use Quit Date: 11/07/18 Pack-years: 30 Tobacco: How many years used: 50 Smoking risk assessment performed?: Yes Alcohol Intake: never Drug use: Never Household members: spouse current occupation: Retired Time Spent with Patient Time Spent with Patient: 45-69 minutes Time was spent: preparing to see the patient(eg.review tests), ordering medications,tests, procedures, referring, communicating with other health resident care technician, indepentently interpreting results and care coordination
[2022-04-25] MEDS: guaiFENesin 600 MG TABCR PO (13:00)
--- NOTE | 2022-04-25 15:23 | CMPROGNOTE_ITS ---
- If Service Date Differs Date of service: 04/25/22 Time of Service: 15:23 Care Management Progress Note Fifi transferred back to [facility] acute-acute. Nursing Pollution Control Engineer coordinated EMS transport.
--- NOTE | 2022-05-07 09:19 | PT.INDS ---
Date of service: 05/07/22 PT Notes Visit Reasons: Acute Hypoxemic Respiratory Failue Inpatient Physical Therapy Discharge Summary Date: 04/24/22 Dates of Service: 04/24/2022 through 04/25/2022 This is a clinical summary of care provided for the duration of dates listed above. No charge was made in the completion of this documentation. Referring Doctor:? Dr. Fortune PT Orders: PT CONSULT: limited ability to ambulate Precautions: standard Patient Profile/Admitting Diagnosis:?? Patient admitted from [facility] for ICU level care on 04/21/22 for management of tachypnea, tachycardia and hypoxemia requiring intubation and mechanical ventilation. She was extubated 04/22/22. PT orders received today for evaluation and treatment. PMHX: All Active Problems?(Updated 04/21/22 @ 02:42 by Uche Madera MD) DVT prophylaxis (Acute) Acute hypotension (Acute) Acute respiratory failure with hypoxia and hypercarbia (Acute) Varicose veins of lower extremities with inflammation (Acute) Recurrent major depression (Acute) Psoriasis (Chronic) Obstructive sleep apnea (Chronic) Myoclonus (Acute) Lumbar spondylosis (Acute) Lumbago with sciatica (Acute) Iron deficiency anemia (Acute) Essential hypertension (Acute) Hyperlipidemia (Acute) Hyperglycemia (Acute) GERD (gastroesophageal reflux disease) (Chronic) Eustachian tube disorder (Acute) Dysphagia (Acute) Hiatal hernia (Chronic) Degenerative joint disease involving multiple joints (Acute) Atopic dermatitis (Acute) Arthropathy (Acute) Anemia (Chronic) COPD exacerbation (Acute) Medical History?(Updated 04/21/22 @ 02:42 by Uche Madera MD) Benign neoplasm of endocrine gland Cardiac arrhythmia Former tobacco use History of non-ST elevation myocardial infarction (NSTEMI) Inflammatory dermatosis Pleurisy Social History/Home Situation: Lives with in a private home. Three outdoor steps to enter. Ambulates without AD at baseline. Drives and participates in community activities. Equipment Owned/DME: none Subjective:? NT. See most recent BUTTON BROACHER notes. Objective:? General Observation: NT. See most recent BUTTON BROACHER notes. Mental Status: NT. See most recent BUTTON BROACHER notes. Pain: NT. See most recent BUTTON BROACHER notes. Vital Signs: NT. See most recent BUTTON BROACHER notes. ROM: Right Upper Extremity: WFL Left Upper Extremity: WFL Right Lower Extremity: WFL with the exception of right ankle, which is surgically fused Left Lower Extremity: WFL Strength: Right Upper Extremity: Shoulder flexion 4-/5. Triceps 3+/5. Microsoft Windows Engineer is weak, but equal. Left Upper Extremity: Shoulder flexion 4-/5. Triceps 3+/5. [employer] Windows Engineer is weak, but equal. Right Lower Extremity: Hip flexion 4/5. Quads 4/5. Ankle DF 5/5. Left Lower Extremity: Hip flexion 4/5. Quads 4/5. Ankle DF 5/5. BED MOBILITY/TRANSFERS? Stand-sit: CGA Stand-sit: SBA? GAIT? Assistive Device: FWW? Weight bearing: Full Assist: SBA ? Distance:? 40' + 20' ? Deviation: Slow pacing, SOB, seated rest x1 Balance:? Static Sitting: good Dynamic Sitting: good Static Standing: good Dynamic Standing: fair Assessment:? Patient is a 71-year-old female referred to physical therapy services for evaluation and treatment.? Patient presents with mobility impairments related to acute medical issues including acute respiratory failure, as demonstrated by the following impairment level findings: 1. Decreased activity tolerance 2. oxygen desaturation with short distance ambulation 3. UE and LE weakness 4. gait impairments ?Impairments are contributing to the following functional limitations: 1. unable to ambulate household distances 2. decreased activity tolerance 3. unable to ambulate unassisted Goals: Goals X1 week 1. Supine-Sit : supervision NOT MET 2. Sit-Supine : supervision NOT MET 3. Sit-Stand : supervision NOT MET 4. Stand-Sit : supervision NOT MET 5. Bed-Chair : supervision with FWW NOT MET 6. Chair-Bed : supervision with FWW NOT MET 7. Gait : supervision with FWW NOT MET 8. Stairs : CGA NOT MET 9. Independent with home exercise program NOT MET DISCHARGE RECOMMENDATIONS: Home with services ( PT) TREATMENT CODE/TIME: [place] Thank you for the opportunity to participate in the care of this patient. Audrey Coelho PT, DPT, CLT [facility] [place], [place]
== END 2022-04-25 15:39 | disposition short-term general hospital (02) | DRG 208 ==
LOC: ICU 04-23 09:29 → MS 04-23 15:08
PROVIDERS: Family Medicine; Student in an Organized Health Care Education/Training Program; Admitting Provider Internal Medicine; Visit Provider Internal Medicine
DX: J44.0 Chronic obstructive pulmonary disease with (acute) lower respiratory infection (principal); J96.21 Acute and chronic respiratory failure with hypoxia; J96.22 Acute and chronic respiratory failure with hypercapnia; N17.9 Acute kidney failure, unspecified; F33.9 Major depressive disorder, recurrent, unspecified; J20.9 Acute bronchitis, unspecified; J44.1 Chronic obstructive pulmonary disease with (acute) exacerbation; I95.9 Hypotension, unspecified; K21.9 Gastro-esophageal reflux disease without esophagitis; E87.6 Hypokalemia; L89.159 Pressure ulcer of sacral region, unspecified stage; D72.829 Elevated white blood cell count, unspecified; E86.1 Hypovolemia; K44.9 Diaphragmatic hernia without obstruction or gangrene; E78.5 Hyperlipidemia, unspecified; Z87.891 Personal history of nicotine dependence; I83.12 Varicose veins of left lower extremity with inflammation; I83.11 Varicose veins of right lower extremity with inflammation; L40.9 Psoriasis, unspecified; G47.33 Obstructive sleep apnea (adult) (pediatric); M47.816 Spondylosis without myelopathy or radiculopathy, lumbar region; M54.40 Lumbago with sciatica, unspecified side; D50.9 Iron deficiency anemia, unspecified; I10 Essential (primary) hypertension; M15.9 Polyosteoarthritis, unspecified; I25.2 Old myocardial infarction; R73.9 Hyperglycemia, unspecified; R13.12 Dysphagia, oropharyngeal phase
CPT/HCPCS: 36415; 80048; 80053; 82805; 84145; 87449; 92526; 92610; 93308; 94618; 94640; 97162; 97530; J1650; 71045; 83605; 83735; 84443; 85025; 85610; 87070; 87205; 87899; 93005; 93010; 94003; 94660; 94664; 94667; 99232; 99233; 99239; 99291; J1940; J2060; J2270; J3010; J3480; J3490; J7512; J7611; J7613; J7614; J7620; J7644